=== PATIENT | male | born 1940 | race Caucasian/White ===

== ENCOUNTER 2018-10-01 14:26 | Emergency (ER) | payer MEDICARE, OTHER, SELFPAY ==
[2018-10-01 14:30] VITALS: BP 188/79; PULSE 65; RESP 14; TEMP 36.7; O2SAT 97; BMI 25.1
--- NOTE | 2018-10-01 14:50 | ED_ITS ---
HPI - Abdominal Pain <Josie Griffin PA-C - Last Filed: 10/01/18 20:54> General Chief Complaint: Abdominal Pain Stated Complaint: severe stomach pain lower left side Time Seen by Provider: 10/01/18 14:49 Source: patient Mode of arrival: ambulatory Limitations: no limitations History of Present Illness HPI narrative: This 78-year-old male comes in due to onset of abdominal pain about 2 1/2 hr prior to arrival. He states this is mainly in the left and mid lower quadrants and he feels bloated. He has not had fever, nausea, or vomiting and states he ate lunch after the pain started. He describes the pain as sort of a burning sensation, better with standing up and worse with sitting or bending, feeling like that increases pressure. He states he had a normal bowel movement this morning. He denies any new urinary symptoms. He denies any diet changes or exposures. He denies any new trauma such as lifting. No rashes. He has a history of acid reflux and states pain is not like that, denies chest pain or dyspnea or any other new complaints with this. He states that he had a similar episode about 6 weeks ago that resolved on its own in 5 or 6 hr. PCP advised to ED if recurrent Related Data Home Medications Medication Instructions Recorded Confirmed Ca-D3-mag qk-gnqc-qtk-antolin-bor 1 tab PO QPM 10/01/18 10/01/18 [Calcium 600-D3 Plus] Fish Oil 1,200 mg PO QPM 10/01/18 10/01/18 aspirin 81 mg PO QPM 10/01/18 10/01/18 calcium polycarbophil [Fiber 625 mg PO QPM 10/01/18 10/01/18 (calcium polycarbophil)] folic acid 0.4 mg PO QPM 10/01/18 10/01/18 lansoprazole 30 mg PO DAILY 10/01/18 10/01/18 lovastatin 40 mg PO QPM 10/01/18 10/01/18 tamsulosin 0.8 mg PO QPM 10/01/18 10/01/18 Previous Rx's Medication Instructions Recorded hydrocodone-acetaminophen [[place]] 2 tab PO Q6H #16 tab 10/01/18 sulfamethoxazole-trimethoprim 1 tab PO BID #14 tab 10/01/18 [Bactrim DS] Allergies Allergy/AdvReac Type Severity Reaction Status Date / Time No Known Drug Allergies Allergy Verified 10/01/18 14:33 Review of Systems <Josie Griffin PA-C - Last Filed: 10/01/18 20:54> Review of Systems All systems reviewed & are unremarkable except as noted in HPI and below Exam <Josie Griffin PA-C - Last Filed: 10/01/18 20:54> Narrative Exam Narrative: GENERAL APPEARANCE: Patient resting comfortably, in no distress. HEENT: PERRL, EOMI, no scleral icterus NECK: Supple LUNGS: Clear to auscultation bilaterally. HEART: Rate and rhythm regular, normal S1 and S2, no S3 or S4. ABDOMEN: Soft, nondistended, bowel sounds present x 4 quadrants, no masses palpable, no hepatosplenomegaly. No tenderness to palpation is elicited EXTREMITIES: No edema, no cyanosis, no calf tenderness DERMATOLOGIC: No jaundice or exanthem NEUROLOGIC: Alert and oriented with normal speech and coordination MUSCULOSKELETAL: Full range of motion of the trunk without tenderness, no tenderness elicited with left hip forced flexion, inversion/eversion Initial Vital Signs Initial Vital Signs: Vital Signs Temperature 98.1 F 10/01/18 14:30 Pulse Rate 65 10/01/18 14:30 Respiratory Rate 14 10/01/18 14:30 Blood Pressure 188/79 H 10/01/18 14:30 Pulse Oximetry 97 10/01/18 14:30 <Elaine Marrero DO - Last Filed: 10/02/18 08:10> Initial Vital Signs Initial Vital Signs: Vital Signs Temperature 98.1 F 10/01/18 14:30 Pulse Rate 65 10/01/18 14:30 Respiratory Rate 14 10/01/18 14:30 Blood Pressure 188/79 H 10/01/18 14:30 Pulse Oximetry 97 10/01/18 14:30 Course <MODE Mckeon Last Filed: 10/01/18 20:54> Orders Ordered: Discontinued Medications Sodium Chloride (Normal Saline 0.9%) 1,000 mls @ 1,000 mls/hr IV BOLUS ONE Stop: 10/01/18 16:05 Last Infusion: 10/01/18 16:42 Dose: 0 mls/hr Admin: 10/01/18 15:19 Dose: 1,000 mls/hr Ketorolac Tromethamine (Toradol) 15 mg IV NOW ONE Stop: 10/01/18 15:07 Last Admin: 10/01/18 15:19 Dose: 15 mg Patient reported feeling significantly improved prior to discharge. He is already on tamsulosin. Given a prescription for pain medication and a strainer as well as Bactrim rx. Advised that stone on the left is partly obstructing but likely to pass on its own. He does have a local urologist he saw last year and will call the office to schedule follow-up in case intervention needed. He is agreeable with this plan and will return if any acutely worsening symptoms in the interim Vital Signs - 8 hr 10/01/18 14:30 10/01/18 16:05 10/01/18 16:20 Temperature 98.1 F Pulse Rate 65 74 74 Respiratory Rate 14 16 14 Blood Pressure 188/79 H Blood Pressure [Left Arm] 178/76 H 163/76 H Pulse Oximetry 97 96 96 10/01/18 16:43 Temperature Pulse Rate 77 Respiratory Rate 15 Blood Pressure Blood Pressure [Left Arm] 164/78 H Pulse Oximetry 99 <Elaine Marrero DO - Last Filed: 10/02/18 08:10> Orders Ordered: Discontinued Medications Sodium Chloride (Normal Saline 0.9%) 1,000 mls @ 1,000 mls/hr IV BOLUS ONE Stop: 10/01/18 16:05 Last Infusion: 10/01/18 16:42 Dose: 0 mls/hr Admin: 10/01/18 15:19 Dose: 1,000 mls/hr Ketorolac Tromethamine (Toradol) 15 mg IV NOW ONE Stop: 10/01/18 15:07 Last Admin: 10/01/18 15:19 Dose: 15 mg Vital Signs - 8 hr 10/01/18 14:30 10/01/18 16:05 10/01/18 16:20 Temperature 98.1 F Pulse Rate 65 74 74 Respiratory Rate 14 16 14 Blood Pressure 188/79 H Blood Pressure [Left Arm] 178/76 H 163/76 H Pulse Oximetry 97 96 96 10/01/18 16:43 Temperature Pulse Rate 77 Respiratory Rate 15 Blood Pressure Blood Pressure [Left Arm] 164/78 H Pulse Oximetry 99 MDM - Abdominal Pain <Josie Griffin PA-C - Last Filed: 10/01/18 20:54> Lab Data Result diagrams: 10/01/18 14:55 10/01/18 14:55 Lab Results 10/01/18 10/01/18 10/01/18 Range/Units 14:55 14:55 14:55 WBC 6.5 (4.5-11.0) X10^3/uL RBC 4.70 (4.5-5.9) X10^6/uL Hgb 14.5 (13.5-17.5) g/dL Hct 42.7 (41-53) % MCV 90.9 (80-100) fL MCH 30.9 (26-34) PG MCHC 34.0 (30-36) % RDW 13.5 (11.6-14.8) % Plt Count 197 (150-400) X10^3/uL Neut % (Auto) 85.9 H (50-75) % Lymph % (Auto) 6.9 L (25-40) % [place] % (Auto) 6.6 (3-14) % Eos % (Auto) 0.2 L (2-4) % Baso % (Auto) 0.4 (0-2) % Neut # (Auto) 5600 (9105-6461) /uL PT 11.4 (10.1-12.7) SECONDS INR 1.0 (0.9-1.3) APTT 32 (26.4-36.2) SECONDS Sodium 145 (137-145) mmol/L Potassium 4.6 (3.4-5.1) mmol/L Chloride 107 (98-107) mmol/L Carbon Dioxide 26 (22-32) mmol/L BUN 21 H (9-20) mg/dL Creatinine 1.40 H (0.66-1.25) mg/dL Estimated GFR 49.3 L (>60) mL/min BUN/Creatinine Ratio 15.0 (6-22) Glucose 121 H (80-110) mg/dL Calcium 9.3 (8.4-10.2) mg/dL Total Bilirubin 0.6 (0.2-1.3) mg/dL AST 27 (17-59) IU/L ALT 32 (21-72) IU/L Alkaline Phosphatase 91 (38-126) U/L Total Protein 6.9 (6.3-8.2) g/dL Albumin 4.2 (3.5-5.0) g/dL Globulin 2.7 (1.7-4.1) g/dL Albumin/Globulin Ratio 1.6 (1.0-2.8) Lipase 54 (23-300) U/L Urine RBC (0-5/HPF) Urine WBC (0-5/HPF) Urine Bacteria (None) Ur Culture Indicated? Micro UA Comment 10/01/18 Range/Units Unknown WBC (4.5-11.0) X10^3/uL RBC (4.5-5.9) X10^6/uL Hgb (13.5-17.5) g/dL Hct (41-53) % MCV (80-100) fL MCH (26-34) PG MCHC (30-36) % RDW (11.6-14.8) % Plt Count (150-400) X10^3/uL Neut % (Auto) (50-75) % Lymph % (Auto) (25-40) % [place] % (Auto) (3-14) % Eos % (Auto) (2-4) % Baso % (Auto) (0-2) % Neut # (Auto) (5670-4270) /uL PT (10.1-12.7) SECONDS INR (0.9-1.3) APTT (26.4-36.2) SECONDS Sodium (137-145) mmol/L Potassium (3.4-5.1) mmol/L Chloride (98-107) mmol/L Carbon Dioxide (22-32) mmol/L BUN (9-20) mg/dL Creatinine (0.66-1.25) mg/dL Estimated GFR (>60) mL/min BUN/Creatinine Ratio (6-22) Glucose (80-110) mg/dL Calcium (8.4-10.2) mg/dL Total Bilirubin (0.2-1.3) mg/dL AST (17-59) IU/L ALT (21-72) IU/L Alkaline Phosphatase (38-126) U/L Total Protein (6.3-8.2) g/dL Albumin (3.5-5.0) g/dL Globulin (1.7-4.1) g/dL Albumin/Globulin Ratio (1.0-2.8) Lipase (23-300) U/L Urine RBC 5-10/hpf H (0-5/HPF) Urine WBC 5-10/hpf H (0-5/HPF) Urine Bacteria None seen (None) Ur Culture Indicated? Specimen cultured Micro UA Comment Not Reportable Point of care testing: Urine Dip Bedside Urine Glucose Negative Bedside Urine Bilirubin - Negative Bedside Urine Ketone - Negative Urine Specific [place] 1.030 Bedside Urine Occult Blood +++ Bedside Urine pH 6.0 Bedside Urine Protein + 30 Bedside Urine Urobilinogen - Negative Bedside Urine Nitrite - Negative Bedside Urine Leukocytes +/- 15 Esterase <Elaine Marrero, DO - Last Filed: 10/02/18 08:10> Lab Data Lab Results 10/01/18 10/01/18 10/01/18 Range/Units 14:55 14:55 14:55 WBC 6.5 (4.5-11.0) X10^3/uL RBC 4.70 (4.5-5.9) X10^6/uL Hgb 14.5 (13.5-17.5) g/dL Hct 42.7 (41-53) % MCV 90.9 (80-100) fL MCH 30.9 (26-34) PG MCHC 34.0 (30-36) % RDW 13.5 (11.6-14.8) % Plt Count 197 (150-400) X10^3/uL Neut % (Auto) 85.9 H (50-75) % Lymph % (Auto) 6.9 L (25-40) % [place] % (Auto) 6.6 (3-14) % Eos % (Auto) 0.2 L (2-4) % Baso % (Auto) 0.4 (0-2) % Neut # (Auto) 5600 (5804-5616) /uL PT 11.4 (10.1-12.7) SECONDS INR 1.0 (0.9-1.3) APTT 32 (26.4-36.2) SECONDS Sodium 145 (137-145) mmol/L Potassium 4.6 (3.4-5.1) mmol/L Chloride 107 (98-107) mmol/L Carbon Dioxide 26 (22-32) mmol/L BUN 21 H (9-20) mg/dL Creatinine 1.40 H (0.66-1.25) mg/dL Estimated GFR 49.3 L (>60) mL/min BUN/Creatinine Ratio 15.0 (6-22) Glucose 121 H (80-110) mg/dL Calcium 9.3 (8.4-10.2) mg/dL Total Bilirubin 0.6 (0.2-1.3) mg/dL AST 27 (17-59) IU/L ALT 32 (21-72) IU/L Alkaline Phosphatase 91 (38-126) U/L Total Protein 6.9 (6.3-8.2) g/dL Albumin 4.2 (3.5-5.0) g/dL Globulin 2.7 (1.7-4.1) g/dL Albumin/Globulin Ratio 1.6 (1.0-2.8) Lipase 54 (23-300) U/L Urine RBC (0-5/HPF) Urine WBC (0-5/HPF) Urine Bacteria (None) Ur Culture Indicated? Micro UA Comment 10/01/18 Range/Units Unknown WBC (4.5-11.0) X10^3/uL RBC (4.5-5.9) X10^6/uL Hgb (13.5-17.5) g/dL Hct (41-53) % MCV (80-100) fL MCH (26-34) PG MCHC (30-36) % RDW (11.6-14.8) % Plt Count (150-400) X10^3/uL Neut % (Auto) (50-75) % Lymph % (Auto) (25-40) % [place] % (Auto) (3-14) % Eos % (Auto) (2-4) % Baso % (Auto) (0-2) % Neut # (Auto) (3880-2056) /uL PT (10.1-12.7) SECONDS INR (0.9-1.3) APTT (26.4-36.2) SECONDS Sodium (137-145) mmol/L Potassium (3.4-5.1) mmol/L Chloride (98-107) mmol/L Carbon Dioxide (22-32) mmol/L BUN (9-20) mg/dL Creatinine (0.66-1.25) mg/dL Estimated GFR (>60) mL/min BUN/Creatinine Ratio (6-22) Glucose (80-110) mg/dL Calcium (8.4-10.2) mg/dL Total Bilirubin (0.2-1.3) mg/dL AST (17-59) IU/L ALT (21-72) IU/L Alkaline Phosphatase (38-126) U/L Total Protein (6.3-8.2) g/dL Albumin (3.5-5.0) g/dL Globulin (1.7-4.1) g/dL Albumin/Globulin Ratio (1.0-2.8) Lipase (23-300) U/L Urine RBC 5-10/hpf H (0-5/HPF) Urine WBC 5-10/hpf H (0-5/HPF) Urine Bacteria None seen (None) Ur Culture Indicated? Specimen cultured Micro UA Comment Not Reportable Point of care testing: Urine Dip Bedside Urine Glucose Negative Bedside Urine Bilirubin - Negative Bedside Urine Ketone - Negative Urine Specific [place] 1.030 Bedside Urine Occult Blood +++ Bedside Urine pH 6.0 Bedside Urine Protein + 30 Bedside Urine Urobilinogen - Negative Bedside Urine Nitrite - Negative Bedside Urine Leukocytes +/- 15 Esterase Discharge Plan Departure Patient Disposition: Home Clinical Impression: Bilateral nephrolithiasis Discharge Date/Time: 10/01/18 17:03 Interventions: ED Discharge Assessment Last Done: 10/01/18 16:55 Instructions: DI for Kidney Stones Activity Restrictions/Additional Instructions: Your scan today shows that you have stones in both kidneys of similar size, however the 1 on the left is causing a partial blockage due to its location. This is likely to pass on its own, but if not sometimes the urologist will need to do a procedure to remove it or break up the stone. Please call [facility] today and let them know you are a patient and were seen in the emergency room and need to arrange follow-up this week. Please take the prescription pain medicine as you needed (do not drive as it may make you sleepy ), and also start the antibiotic when you pick it up. Continue your tamsulosin. Please return as we talked about if you have any acutely worsening or new symptoms such as vomiting or fever in the interim. Also please arrange follow-up with your PCP to review your scan results today including whether to do any further testing of the thickened area near your stomach that was noted coincidentally Prescriptions: New hydrocodone-acetaminophen [[place]] 5-325 mg tablet 2 tab PO Q6H Qty: 16 RF: 0 sulfamethoxazole-trimethoprim [Bactrim DS] 800-160 mg tablet 1 tab PO BID Qty: 14 RF: 0 No Action lovastatin 40 mg Tablet 40 mg PO QPM RF: 0 folic acid 400 mcg Tablet 0.4 mg PO QPM RF: 0 aspirin 81 mg Tablet,Delayed Release (Dr/Ec) 81 mg PO QPM RF: 0 tamsulosin 0.4 mg Capsule 0.8 mg PO QPM RF: 0 lansoprazole 30 mg Capsule,Delayed Release(Dr/Ec) 30 mg PO DAILY RF: 0 calcium polycarbophil [Fiber (calcium polycarbophil)] 625 mg Tablet 625 mg PO QPM RF: 0 Ca-D3-mag vf-waqr-gss-antolin-bor [Calcium 600-D3 Plus] 600 mg calcium- 800 unit- 50 mg Tablet 1 tab PO QPM RF: 0 Fish Oil 1,200 mg 1,200 mg PO QPM RF: 0 Referrals: Noris Brady MD [Non-Staff] - Booker Hancock MD [Primary Care Provider] - <Elaine Marrero DO - Last Filed: 10/02/18 08:10> Cosign ED Attending Cosignature Attestation: I was immediately available in the department for consultation. Documentation has been reviewed. I agree with assessment and plan.
[2018-10-01 15:05] LABS: Add Manual Diff / Slide Review NO; Basophils Percent Auto 0.4 % (0-2); Eosinophils Percent Auto 0.2 % (2-4); Hematocrit 42.7 % (41-53); Hemoglobin 14.5 g/dL (13.5-17.5); Lymphocytes Percent Auto 6.9 % (25-40); Mean Corpuscular Hemoglobin 30.9 PG (26-34); Mean Corpuscular Volume 90.9 fL (80-100); Monocytes Percent Auto 6.6 % (3-14); Neutrophils Absolute Auto 5600 /uL (1500-7000); Neutrophils Percent Auto 85.9 % (50-75); Platelet Count 197 X10^3/uL (150-400); Red Cell Distribution Width 13.5 % (11.6-14.8); White Blood Cell Count 6.5 X10^3/uL (4.5-11.0)
--- NOTE | 2018-10-01 15:06 | DI.CT.S_ITS ---
PROCEDURE: CT ABDOMEN PELVIS W CON INDICATIONS: mid to left lower quadrant pain TECHNIQUE: After the administration of intravenous contrast, 5 mm thick sections acquired from the diaphragm to the symphysis. 5 mm coronal and sagittal reformats were acquired. For radiation dose reduction, the following was used: automated exposure control, adjustment of mA and/or kV according to patient size. COMPARISON: None. FINDINGS: Image quality: Excellent. ABDOMEN: Lung bases: Lung bases are clear. Heart size is normal. Solid organs: Liver is normal in size and enhancement. Gallbladder demonstrates multiple calculi within its lumen. Biliary system is non dilated. Pancreas enhances normally. Spleen is normal in size and enhancement. No adrenal nodules. The right kidney is normal in size. There is a nonobstructing 6 mm diameter calculus within the right interpolar kidney posteriorly. There is mild left renal enlargement and severe (for fastening. Moderate left hydronephrosis and left ureteral dilatation. There is a 6 mm diameter calculus at the left ureterovesical junction measuring 509 Hounsfield units. Peritoneum and bowel: There is thickening and hyperemia of the gastric antrum. No free fluid or air. Normal appendix. Nodes and vessels: No retroperitoneal or mesenteric adenopathy by size criteria. There is mild focal ectasia within the infrarenal abdominal aorta measuring 21 mm. Aorta and inferior vena cava are otherwise normal in size. Miscellaneous: No ventral hernias. PELVIS: Genitourinary: Urinary bladder is decompressed. Prostate is enlarged and heterogeneous, and indents the urinary bladder base. Miscellaneous: No inguinal hernias or adenopathy. Bones: No suspicious bony lesions. No vertebral body compression fractures. IMPRESSION: 1. Left ureterovesical junction calculus with moderate associated left-sided hydronephrosis. 2. Nonobstructing right renal calculus. 3. Thickening of hyperemia of the gastric antrum, which may indicate peptic ulcer disease. However, endoscopy is recommended to exclude neoplasm. 4. Cholelithiasis. 6. Normal appendix. 7. Prostate enlargement; recommend correlation with PSA values. Dictated by: Faith Warren M.D. on 10/01/2018 at 16:09 Approved by: Faith Warren M.D. on 10/01/2018 at 16:13
[2018-10-01 15:15] LABS: Prothrombin Time 11.4 SECONDS (10.1-12.7)
[2018-10-01 15:17] LABS: PTT Partial Thromboplastin Tim 32 SECONDS (26.4-36.2)
[2018-10-01] MEDS: SODIUM CHLORIDE 0.9% 1,000 ML 1000 ML IV (15:19)
[2018-10-01] MEDS: KETOROLAC 60 MG/2 ML VIAL 15 MG IV (15:19)
[2018-10-01 15:20] LABS: Alanine Aminotransferase 32 IU/L (21-72); Albumin 4.2 g/dL (3.5-5.0); Albumin Globulin Ratio 1.6 (1.0-2.8); Alkaline Phosphatase 91 U/L (38-126); Aspartate Aminotransferase 27 IU/L (17-59); Bilirubin Total 0.6 mg/dL (0.2-1.3); Blood Urea Nitrogen 21 mg/dL (9-20); Calcium 9.3 mg/dL (8.4-10.2); Carbon Dioxide 26 mmol/L (22-32); Chloride 107 mmol/L (98-107); Estimated Glomerular Filt Rate 49.3 mL/min (>60); Globulin 2.7 g/dL (1.7-4.1); Glucose 121 mg/dL (80-110); HEMOLYSIS 17 (0-50); Lipase 54 U/L (23-300); Potassium 4.6 mmol/L (3.4-5.1); Sodium 145 mmol/L (137-145); Total Protein 6.9 g/dL (6.3-8.2)
[2018-10-01 15:37] LABS: Bacteria Urine None Seen
[2018-10-01 15:52] LABS: RBC Urine 5-10/HPF (0-5/HPF); WBC Urine 5-10/HPF (0-5/HPF)
[2018-10-01 15:53] LABS: Culture Indicated Urine Specimen Cultured
[2018-10-01 16:05] VITALS: BP 178/76; PULSE 74; RESP 16; O2SAT 96
[2018-10-01 16:20] VITALS: BP 163/76; PULSE 74; RESP 14; O2SAT 96
[2018-10-01 16:43] VITALS: BP 164/78; PULSE 77; RESP 15; O2SAT 99
== END 2018-10-01 17:03 | disposition home or self-care (01) ==
PROVIDERS: Emergency Medicine; Emergency Provider Internal Medicine; Family Provider Family Medicine; PCP Family Medicine
DX: N20.0 Calculus of kidney (principal)
CPT/HCPCS: 36591; 74177; 80053; 81003; 81015; 83690; 85025; 85610; 85730; 87086; 96361; 96374; 99283; 99285; J1885; Q9967

== ENCOUNTER → 2018-10-11 10:21 | Outpatient (CLI) | payer MEDICARE, OTHER, SELFPAY ==
[2018-10-11 12:22] LABS: BUN Creatinine Ratio 13.1 (6-22); Blood Urea Nitrogen 21 mg/dL (9-20); Estimated Glomerular Filt Rate 42.2 mL/min (>60)
== END ==
PROVIDERS: Family Provider Family Medicine; PCP Family Medicine; Visit Provider Urology
DX: N28.9 Disorder of kidney and ureter, unspecified (principal)
CPT/HCPCS: 36415; 82565; 84520

== ENCOUNTER 2018-10-25 20:14 | Emergency (ER) | payer MEDICARE, OTHER, SELFPAY ==
[2018-10-25 20:33] VITALS: BP 124/73; PULSE 99; RESP 18; TEMP 36.9; O2SAT 95
--- NOTE | 2018-10-25 21:58 | ED.MALEGU ---
HPI - Male Genitourinary General Chief complaint: Urogenital-Male Stated complaint: CLOTS IN URINARY CATHETER BAG S/P PROCEDURE Time Seen by Provider: 10/25/18 20:49 Source: patient and family Mode of arrival: ambulatory Limitations: no limitations History of Present Illness HPI Narrative: 78-year-old male, nonsmoker presents with his and a chief complaint of blood in his Lange catheter. Earlier in the day the patient was seen and treated by Urology at [facility]. He had a ureteral stent placed because he was unable to urinate. This Lange was placed in the care of his urology team. Patient has no pain nor systemic findings such as fever, shaking chills, back pain or vomiting. He is here purely because of a few blood clots in his pinkish colored urine. He takes no blood thinners. MD Complaint: testicle pain Onset (ago): minute(s) Duration: constant and improved Related Data Home Medications Medication Instructions Recorded Confirmed Ca-D3-mag bv-nzsc-zlx-antolin-bor 1 tab PO QPM 10/01/18 10/24/18 [Calcium 600-D3 Plus] Fish Oil 1,200 mg PO QPM 10/01/18 10/24/18 aspirin 81 mg PO QPM 10/01/18 10/24/18 calcium polycarbophil [Fiber 625 mg PO QPM 10/01/18 10/24/18 (calcium polycarbophil)] folic acid 0.4 mg PO QPM 10/01/18 10/24/18 lansoprazole 30 mg PO DAILY 10/01/18 10/24/18 lovastatin 40 mg PO QPM 10/01/18 10/24/18 tamsulosin 0.8 mg PO QPM 10/01/18 10/24/18 Previous Rx's Medication Instructions Recorded hydrocodone-acetaminophen [[place]] 2 tab PO Q6H #16 tab 10/01/18 sulfamethoxazole-trimethoprim 1 tab PO BID #14 tab 10/01/18 [Bactrim DS] Allergies Allergy/AdvReac Type Severity Reaction Status Date / Time No Known Drug Allergies Allergy Verified 10/24/18 13:17 Review of Systems Constitutional Denies chills, Denies fever(s), Denies lethargy and Denies weakness Eyes Denies change in vision, Denies eye discharge, Denies irritation and Denies loss of vision ENT Ears, Nose, Mouth, and Throat: Denies change in voice, Denies neck pain and Denies sore throat Cardiovascular Denies chest pain, Denies irregular heart rhythm, Denies lightheadedness, Denies palpitations, Denies dyspnea, Denies dyspnea on exertion and Denies orthopnea Respiratory Denies cough, Denies dyspnea, Denies dyspnea on exertion and Denies wheezing Gastrointestinal Gastrointestinal: Denies abdominal pain, Denies change in bowel habits, Denies diarrhea, Denies nausea and Denies vomiting Genitourinary Denies hematuria, Reports difficulty urinating, Denies flank pain, Denies urinary incontinence and Denies urinary urgency Musculoskeletal Denies neck pain Integumentary/Breasts Denies pruritus, Denies erythema, Denies rash and Denies wounds Neurologic Denies confusion, Denies loss of vision and Denies weakness Psychiatric Denies anxiety, Denies confusion, Denies depression, Denies homicidal ideation and Denies suicidal ideation Endocrine Denies palpitations Hematologic/Lymphatic Denies easy bruising Allergic/Immunologic Denies wheezing PFSH Medical History Kidney stones (Acute) BPH (benign prostatic hyperplasia) (Chronic) GERD (gastroesophageal reflux disease) (Chronic) HTN (hypertension) (Chronic) Hyperlipidemia (Chronic) Surgical History History of tonsillectomy (Resolved) Social History Smoking Status: Never smoker Exam Narrative Exam Narrative: GEN: AOx3 and in mild distress EYES: Pupils are equal, round, and reactive to light and accommodation. Extraoccular muscles are intact bilaterally. There is no subconjunctival hemorrhage or exudate. CHEST: Lungs are clear to auscultation bilaterally and free of wheezes, rales, or rhonchi. Heart rate is regular rhythm, there are no murmurs, clicks, rubs, or gallops. There is no chest wall tenderness. ABD: Abdomen is soft and nontender. There is no guarding or rebound. Bowel sounds are normal in all 4 quadrants. There is no mass or organomegaly. There is clear, blood-tinged urine in Lange bag with small clots, this is easily flushed to normal EXT: Full painless ROM of all extremities with no loss of sensation or strength. SKIN: Warm, pink, and dry. No erythema or rash Initial Vital Signs Initial Vital Signs: Vital Signs Temperature 98.5 F 10/25/18 20:33 Pulse Rate 99 H 10/25/18 20:33 Respiratory Rate 18 10/25/18 20:33 Blood Pressure 124/73 10/25/18 20:33 Pulse Oximetry 95 10/25/18 20:33 Course Consultations Consultation #1: Called to Dr. Brady, on-call Urology. After discussing the patient's history and physical she states this is likely a normal consequence of the above-stated therapy. She does not request any other specific intervention given lack of symptoms and normal vital signs Vital Signs - 8 hr 10/25/18 20:33 10/25/18 22:42 Temperature 98.5 F Pulse Rate 99 H 70 Respiratory Rate 18 20 Blood Pressure 124/73 147/67 H Pulse Oximetry 95 97 Discharge Plan Departure Patient Disposition: Home Clinical Impression: Complication of Lange catheter Discharge Date/Time: 10/25/18 22:44 Interventions: ED Discharge Assessment Last Done: 10/25/18 22:42 Instructions: How to Care for Your Lange Catheter -- Male Activity Restrictions/Additional Instructions: *You have been diagnosed with [Lange catheter problem, hematuria ] *What to do: * continue to take medications as directed *Follow up with your urologist on Monday as planned *Return to ER if you should have any new, worsening or concerning symptoms Prescriptions: No Action lovastatin 40 mg Tablet 40 mg PO QPM RF: 0 folic acid 400 mcg Tablet 0.4 mg PO QPM RF: 0 aspirin 81 mg Tablet,Delayed Release (Dr/Ec) 81 mg PO QPM RF: 0 tamsulosin 0.4 mg Capsule 0.8 mg PO QPM RF: 0 lansoprazole 30 mg Capsule,Delayed Release(Dr/Ec) 30 mg PO DAILY RF: 0 calcium polycarbophil [Fiber (calcium polycarbophil)] 625 mg Tablet 625 mg PO QPM RF: 0 Ca-D3-mag ap-dawi-cfc-antolin-bor [Calcium 600-D3 Plus] 600 mg calcium- 800 unit-50 mg Tablet 1 tab PO QPM RF: 0 Fish Oil 1,200 mg 1,200 mg PO QPM RF: 0 hydrocodone-acetaminophen [[place]] 5-325 mg tablet 2 tab PO Q6H Qty: 16 RF: 0 sulfamethoxazole-trimethoprim [Bactrim DS] 800-160 mg tablet 1 tab PO BID Qty: 14 RF: 0 Referrals: John Cr MD [Non-Staff] - Booker Hancock MD [Primary Care Provider] -
--- NOTE | 2018-10-25 22:11 | ED_ITS ---
HPI - Male Genitourinary General Chief complaint: Urogenital-Male Stated complaint: CLOTS IN URINARY CATHETER BAG S/P PROCEDURE Time Seen by Provider: 10/25/18 20:49 Source: patient and family Mode of arrival: ambulatory Limitations: no limitations History of Present Illness HPI Narrative: 78-year-old male, nonsmoker presents with his and a chief complaint of blood in his Lange catheter. Earlier in the day the patient was seen and treated by Urology at [facility]. He had a ureteral stent placed because he was unable to urinate. This Lange was placed in the care of his urology team. Patient has no pain nor systemic findings such as fever, shaking chills, back pain or vomiting. He is here purely because of a few blood clots in his pinkish colored urine. He takes no blood thinners. MD Complaint: testicle pain Onset (ago): minute(s) Duration: constant and improved Related Data Home Medications Medication Instructions Recorded Confirmed Ca-D3-mag qs-yhse-hsq-antolin-bor 1 tab PO QPM 10/01/18 10/24/18 [Calcium 600-D3 Plus] Fish Oil 1,200 mg PO QPM 10/01/18 10/24/18 aspirin 81 mg PO QPM 10/01/18 10/24/18 calcium polycarbophil [Fiber 625 mg PO QPM 10/01/18 10/24/18 (calcium polycarbophil)] folic acid 0.4 mg PO QPM 10/01/18 10/24/18 lansoprazole 30 mg PO DAILY 10/01/18 10/24/18 lovastatin 40 mg PO QPM 10/01/18 10/24/18 tamsulosin 0.8 mg PO QPM 10/01/18 10/24/18 Previous Rx's Medication Instructions Recorded hydrocodone-acetaminophen [[place]] 2 tab PO Q6H #16 tab 10/01/18 sulfamethoxazole-trimethoprim 1 tab PO BID #14 tab 10/01/18 [Bactrim DS] Allergies Allergy/AdvReac Type Severity Reaction Status Date / Time No Known Drug Allergies Allergy Verified 10/24/18 13:17 Review of Systems Constitutional Denies chills, Denies fever(s), Denies lethargy and Denies weakness Eyes Denies change in vision, Denies eye discharge, Denies irritation and Denies loss of vision ENT Ears, Nose, Mouth, and Throat: Denies change in voice, Denies neck pain and Denies sore throat Cardiovascular Denies chest pain, Denies irregular heart rhythm, Denies lightheadedness, Denies palpitations, Denies dyspnea, Denies dyspnea on exertion and Denies orthopnea Respiratory Denies cough, Denies dyspnea, Denies dyspnea on exertion and Denies wheezing Gastrointestinal Gastrointestinal: Denies abdominal pain, Denies change in bowel habits, Denies diarrhea, Denies nausea and Denies vomiting Genitourinary Denies hematuria, Reports difficulty urinating, Denies flank pain, Denies urinary incontinence and Denies urinary urgency Musculoskeletal Denies neck pain Integumentary/Breasts Denies pruritus, Denies erythema, Denies rash and Denies wounds Neurologic Denies confusion, Denies loss of vision and Denies weakness Psychiatric Denies anxiety, Denies confusion, Denies depression, Denies homicidal ideation and Denies suicidal ideation Endocrine Denies palpitations Hematologic/Lymphatic Denies easy bruising Allergic/Immunologic Denies wheezing PFSH Medical History Kidney stones (Acute) BPH (benign prostatic hyperplasia) (Chronic) GERD (gastroesophageal reflux disease) (Chronic) HTN (hypertension) (Chronic) Hyperlipidemia (Chronic) Surgical History History of tonsillectomy (Resolved) Social History Smoking Status: Never smoker Exam Narrative Exam Narrative: GEN: AOx3 and in mild distress EYES: Pupils are equal, round, and reactive to light and accommodation. Extraoccular muscles are intact bilaterally. There is no subconjunctival hemorrhage or exudate. CHEST: Lungs are clear to auscultation bilaterally and free of wheezes, rales, or rhonchi. Heart rate is regular rhythm, there are no murmurs, clicks, rubs, or gallops. There is no chest wall tenderness. ABD: Abdomen is soft and nontender. There is no guarding or rebound. Bowel sounds are normal in all 4 quadrants. There is no mass or organomegaly. There is clear, blood-tinged urine in Lange bag with small clots, this is easily flushed to normal EXT: Full painless ROM of all extremities with no loss of sensation or strength. SKIN: Warm, pink, and dry. No erythema or rash Initial Vital Signs Initial Vital Signs: Vital Signs Temperature 98.5 F 10/25/18 20:33 Pulse Rate 99 H 10/25/18 20:33 Respiratory Rate 18 10/25/18 20:33 Blood Pressure 124/73 10/25/18 20:33 Pulse Oximetry 95 10/25/18 20:33 Course Consultations Consultation #1: Called to Dr. Brady, on-call Urology. After discussing the patient's history and physical she states this is likely a normal consequence of the above-stated therapy. She does not request any other specific intervention given lack of symptoms and normal vital signs Vital Signs - 8 hr 10/25/18 20:33 10/25/18 22:42 Temperature 98.5 F Pulse Rate 99 H 70 Respiratory Rate 18 20 Blood Pressure 124/73 147/67 H Pulse Oximetry 95 97 Discharge Plan Departure Patient Disposition: Home Clinical Impression: Complication of Lange catheter Discharge Date/Time: 10/25/18 22:44 Interventions: ED Discharge Assessment Last Done: 10/25/18 22:42 Instructions: How to Care for Your Lange Catheter -- Male Activity Restrictions/Additional Instructions: *You have been diagnosed with [Lange catheter problem, hematuria ] *What to do: * continue to take medications as directed *Follow up with your urologist on Monday as planned *Return to ER if you should have any new, worsening or concerning symptoms Prescriptions: No Action lovastatin 40 mg Tablet 40 mg PO QPM RF: 0 folic acid 400 mcg Tablet 0.4 mg PO QPM RF: 0 aspirin 81 mg Tablet,Delayed Release (Dr/Ec) 81 mg PO QPM RF: 0 tamsulosin 0.4 mg Capsule 0.8 mg PO QPM RF: 0 lansoprazole 30 mg Capsule,Delayed Release(Dr/Ec) 30 mg PO DAILY RF: 0 calcium polycarbophil [Fiber (calcium polycarbophil)] 625 mg Tablet 625 mg PO QPM RF: 0 Ca-D3-mag or-ykwh-add-antolin-bor [Calcium 600-D3 Plus] 600 mg calcium- 800 unit- 50 mg Tablet 1 tab PO QPM RF: 0 Fish Oil 1,200 mg 1,200 mg PO QPM RF: 0 hydrocodone-acetaminophen [[place]] 5-325 mg tablet 2 tab PO Q6H Qty: 16 RF: 0 sulfamethoxazole-trimethoprim [Bactrim DS] 800-160 mg tablet 1 tab PO BID Qty: 14 RF: 0 Referrals: John rC MD [Non-Staff] - Booker Hancock MD [Primary Care Provider] -
--- NOTE | 2018-10-25 22:33 | PC.NURSE ---
irrigated pts bladder to clear per provider. 500ml sterile saline in, 500ml sterile saline drained. minor blood clots noted provider aware no new order at this time. pt tolerated procedure.
[2018-10-25 22:42] VITALS: BP 147/67; PULSE 70; RESP 20; O2SAT 97
== END 2018-10-25 22:44 | disposition home or self-care (01) ==
PROVIDERS: Emergency Provider Emergency Medicine; Family Provider Family Medicine; PCP Family Medicine
DX: T83.9XXA Unspecified complication of genitourinary prosthetic device, implant and graft, initial encounter (principal)
CPT/HCPCS: 51700; 51798; 99283

== ENCOUNTER 2018-12-04 06:39 | Day surgery (SDC) | payer MEDICARE, OTHER, SELFPAY ==
--- NOTE | 2018-12-04 | PATH_ITS ---
[facility] Accession Number: [id number] . 01 Material submitted: . PART A: SUBMUCOSAL MASS OF THE ANTRUM PART B: GASTRIC POLYPS . 02 Diagnosis: A. Stomach, Antrum, Submucosal Mass, Biopsy: Antral and oxyntic-type mucosa with no diagnostic abnormality. Additional deeper levels were examined. Negative for Helicobacter by immunohistochemistry. Negative for intestinal metaplasia. Negative for dysplasia and malignancy. . B. Stomach, Polyps, Biopsies: Fundic gland polyps. No evidence of Helicobacter on H/E stain. Negative for intestinal metaplasia. Negative for dysplasia and malignancy. [facility]/12/06/2018 . 02 Comment: Part A: The endoscopic appearance of submucosal mass is noted; however, in the biopsy fragments examined, submucosa is not seen. . 02 Electronically signed: . Lu Lang MD, Pathologist NPI- [id number] . 01 Gross description: . Received two formalin-filled containers both labeled with the patient's name. . A. In a container labeled submucosal mass of the antrum are four less than 0.1 to 0.2 cm portions of tissue. Entirely submitted in cassette A. B. In a container labeled gastric polyps are three 0.2 to 0.3 cm portions of tissue. Entirely submitted in cassette B. ([facility]:[id number]) /[facility] . 02 Microscopic: . A. An immunohistochemical stain was performed to evaluate for Helicobacter organisms and is negative. The control stain showed appropriate reactivity. . * This test was developed and its performance characteristics determined by [employer] It has not been cleared or approved by the U.S. Food and Drug Administration. The FDA has determined that such clearance or approval is not necessary. This test is used for clinical purposes. It should not be regarded as investigational or for research. . 02 Pathologist provided ICD-10: R93.89 . 02 CPT . 676632, 511963, Z21718 Performed at: 01 [facility] [address] [id number] MD Manan Márquez MD Phone: [phone] Performed at: [id number] [place], [place] [id number] MD Lu Lang MD Phone: [phone]
[2018-12-04 07:14] VITALS: BP 149/89; PULSE 88; RESP 16; TEMP 36.6; O2SAT 97
[2018-12-04] MEDS: SODIUM CHLORIDE 0.9% 1,000 ML 200 ML IV (07:20)
[2018-12-04 08:03] VITALS: BMI 27.4
--- NOTE | 2018-12-04 08:11 | PM.HP.1 ---
History of Present Illness Date Patient Seen: 12/04/18 Time Patient Seen: 08:00 Chief complaint: [id number] EGD Narrative: Patient is a gentleman here for an EGD. He had an abnormal CT scan of his stomach and is being brought in for evaluation. The gastric antrum shows increased activity and thickening with a suggestion of an ulcer versus a neoplastic process being possible. Patient History Medical History Kidney stones (Acute) BPH (benign prostatic hyperplasia) (Chronic) GERD (gastroesophageal reflux disease) (Chronic) HTN (hypertension) (Chronic) Hyperlipidemia (Chronic) Surgical History History of tonsillectomy (Resolved) Social History household members: spouse Smoking Status: Never smoker Family & Social History Social History: household members spouse Tobacco & Substance use: Smoking Status Never smoker alcohol intake frequency 0-2 drinks per day Substance Use Type does not use Meds Home Medications Medication Instructions Recorded Confirmed Type Ca-D3-mag ec-cybb-dpu-antoiln-bor 1 tab PO QPM 10/01/18 12/04/18 History [Calcium 600-D3 Plus] Fish Oil 1,200 mg PO QPM 10/01/18 10/24/18 History aspirin 81 mg PO QPM 10/01/18 12/04/18 History calcium polycarbophil [Fiber 625 mg PO QPM 10/01/18 12/04/18 History (calcium polycarbophil)] folic acid 0.4 mg PO QPM 10/01/18 10/24/18 History lansoprazole 30 mg PO DAILY 10/01/18 12/04/18 History lovastatin 40 mg PO QPM 10/01/18 12/04/18 History sulfamethoxazole-trimethoprim 1 tab PO BID #14 tab 10/01/18 Rx [Bactrim DS] tamsulosin 0.8 mg PO QPM 10/01/18 10/24/18 History Allergies Allergy/AdvReac Type Severity Reaction Status Date / Time No Known Drug Allergies Allergy Verified 10/24/18 13:17 Review of Systems Review of Systems All systems reviewed & are unremarkable except as noted in HPI and below Genitourinary Comments: Recent kidney stone Exam Vital Signs (past 8 hours): - 12/04/18 07:14 Temperature 97.8 F Pulse Rate 88 Respiratory Rate 16 Blood Pressure 149/89 H Pulse Oximetry 97 Oxygen Delivery Method Room Air Narrative Exam Narrative: Operative no apparent distress. Lungs are clear no rales or rhonchi. heart regular rate and rhythm without murmur gallop. abdomen scaphoid soft nontender without mass. Assessment & Plan Assessment & Plan narrative: Patient with an abnormal CT scan of the stomach. Recommend EGD. Patient is chronically on medication for gastroesophageal reflux disease. Will proceed I have discussed the procedure including risks of bleeding and perforation. He appears to understand wishes to proceed.
[2018-12-04] MEDS: LIDOCAINE 4% SOLN 50 ML 20 ML TOP (08:13)
[2018-12-04] MEDS: TETRACAINE/BENZOCAINE/BUTAMBEN (CETACAINE) BOTTLE 1 SPRAY TOP (08:13)
--- NOTE | 2018-12-04 08:15 | PM.PREOP ---
Pre-operative Note Interval Note History & Physical reviewed/Exam performed by Physician: Yes Changes to H&P: No ASA Class (for procedural sedation): I
[2018-12-04] MEDS: MIDAZOLAM 5 MG/5 ML VIAL IV (08:42)
[2018-12-04] MEDS: fentaNYL 250 MCG/5 ML INJ IV (08:43)
--- NOTE | 2018-12-04 08:44 | PM.OP.ENDO ---
Operative Date/Time/Diagnoses Date of procedure: 12/04/18 Time of procedure: 08:44 Pre-op diagnosis: Abnormal CT scan of the antrum Post-op diagnosis: same Procedure & Clinicians Study performed: EGD with cold biopsy Same procedure as scheduled: Yes Indications: Abnormal CT scan Surgeon: Luis Croft Procedure Notes SCOAP/Timeout: Performed Procedure in detail: The patient had topical anesthetic applied to oropharynx. he was placed in left lateral decubitus position and underwent IV sedation directed by the surgeon consisting of fentanyl and Versed. A bite block was inserted and the scope was advanced through it into the esophagus. The esophagus was unremarkable. GE junction was noted at 39 cm from the incisors. The stomach insufflated well. There were small polyps that appeared to be gastric fundic polyps in the body. These were few in number. The patient appeared to have a submucosal mass on the greater curve of the stomach. It was small, at least that portion protruding up (about 1.5 cm). The pyloric channel was widely patent. The duodenum was remarkable for a narrowing between the 1st and 2nd parts of the duodenum. I could see no lesions however. No scarring was seen. The 3rd part of the duodenum was unremarkable. The bulb was unremarkable. The scope was brought back into the stomach and retroflexed. The proximal stomach appeared to be normal except for very small hiatal hernia not seen from above. I attempted to take deep biopsies of the submucosal mass in the antrum. I then sampled a few of the gastric polyps I had seen in the body. The scope was straightened and brought out through the esophagus again. No lesions were seen. The scope was removed and the patient tolerated the procedure well. Scope withdrawal time: Not applicable Sedation minutes: 15 Findings: polyp (Gastric fundic in the body) and other findings (Submucosal mass in the antrum along the greater curve) Specimen(s): other (Polyp biopsies and attempt at biopsy the submucosal mass) Complications: none Recommendations: Will call with biopsy results Follow up: weeks (1-2) Disposition: PACU
[2018-12-04 08:45] VITALS: BP 114/69; PULSE 78; RESP 12; TEMP 36.7; O2SAT 97
[2018-12-04 08:50] VITALS: BP 116/66; PULSE 67; RESP 12; O2SAT 96
[2018-12-04 08:57] VITALS: BP 110/67; PULSE 77; RESP 12; O2SAT 95
[2018-12-04 09:07] VITALS: BP 123/70; PULSE 72; RESP 16; TEMP 36.2; O2SAT 96
== END 2018-12-04 09:15 | disposition home or self-care (01) ==
PROVIDERS: Family Provider Family Medicine; PCP Family Medicine; Visit Provider Specialist
PROC: 0DJ08ZZ Inspection of Upper Intestinal Tract, Via Natural or Artificial Opening Endoscopic (ICD-10-PCS; CPT 43235; principal; 2018-12-04 07:45)
DX: R93.89 Abnormal findings on diagnostic imaging of other specified body structures (principal); K21.9 Gastro-esophageal reflux disease without esophagitis; I10 Essential (primary) hypertension; E78.5 Hyperlipidemia, unspecified
CPT/HCPCS: 43239; 88305; 88342; 99152; J2250; J3010

== ENCOUNTER → 2024-06-21 12:41 | Outpatient (CLI) | payer MEDICARE, OTHER, SELFPAY ==
--- NOTE | 2024-06-21 12:43 | DI.ECHO.S_ITS ---
[facility]+ [facility] : : [address] : : [place] : : [address] : : Phone: [phone] Echocardiogram Report + + :Name: LOULOU MOLINA Study Date: 06/21/2024 Height: 68 in : :[facility] ReadingLocation: Weight: 165 lb : : Gender: Male BSA: 1.9 m2 : :: 1940 Age: 84 yrs BP: 151/86 mmHg: :Reason For Study: CARDIAC MURMUR : :Ordering Physician: ESTEFANIA, : :LATRICIA Performed By: Janay Brooks : :Referring: LATRICIA MAC : + + Interpretation Summary Normal sinus rhythm. Normal LV size, wall thickness, wall motion and LV systolic function. EF is 60-65%. Stage I diastolic dysfunction. No significant valvular abnormalities. Normal chamber sizes. No prior study available for comparison. Procedure: A two-dimensional transthoracic echocardiogram with color flow and Doppler was performed. The study quality was technically adequate. There is no prior echocardiogram noted for this patient. The patient was in sinus rhythm with heart rates between 60-73 bpm during the exam. Left Ventricle: The left ventricle is normal in size and wall thickness. The ejection fraction is estimated to be 60-65%. Right Ventricle: The right ventricle is normal size. Right ventricular systolic function is at the lower limits of normal. Atria: The left atrial size is normal. Right atrial size is normal. There is no Doppler evidence for an interatrial shunt. The atrial septum is aneurysmal. Mitral Valve: The mitral valve is normal in structure and function. There is mild mitral regurgitation. Aortic Valve: The aortic valve is trileaflet. The aortic valve opens well. There is no aortic valve stenosis. No aortic regurgitation is present. Tricuspid Valve: The tricuspid valve is normal in structure and function. There is mild tricuspid regurgitation. The right ventricular systolic pressure is estimated to be at least 28 mmHg based on an estimated right atrial pressure of 3 mm Hg. Pulmonic Valve: The pulmonic valve is not well seen, but is grossly normal. There is mild pulmonic regurgitation. Great Vessels: The aortic root is normal size. The dimensions of the ascending aorta are normal. The IVC is of normal diameter and collapses greater than 50% with a sniff. This suggests a low right atrial pressure of 3 mm Hg. Pericardium/ Pleura There is no pericardial effusion. There is no pleural effusion. MMode/2D Measurements & Calculations LVIDd: 5.0 cm LVOT diam: 2.0 cm LVIDs: 3.5 cm Ao root diam: 3.2 cm FS: 29.8 % asc Aorta Diam: 3.3 cm IVSd: 0.80 cm Ao Arch Diam (Prox Trans): 2.4 cm LVPWd: 0.92 cm LV shane. diameter/BSA (cm/m^2): 2.7 LV sys. diameter/BSA (cm/m^2): 1.9 LA A2 area: 19.1 cm2 RA long axis: 5.8 cm LA A4 area: 16.5 cm2 RA area: 18.0 cm2 LA length (vol): 5.2 cm RA vol: 47.2 ml LA vol: 51.2 ml RA : 25.0 ml/m2 LA vol index: 27.2 ml/m2 IVC diam: 1.3 cm RVD1 (basal): 4.0 cm RVD2 (mid): 3.4 cm TAPSE: 1.6 cm Doppler Measurements & Calculations Ao V2 max: 157.5 cm/sec LVOT Max Jim: 82.0 cm/sec Ao V2 mean: 114.6 cm/sec LV V1 max P.7 mmHg Ao max P.9 mmHg LV V1 VTI: 17.1 cm Ao mean P.8 mmHg SURI(I,D): 1.7 cm2 Ao V2 VTI: 32.3 cm SURI(V,D): 1.7 cm2 sev ratio: 0.53 SURI indexed to BSA (cm^2/m^2): 0.89 MV E max jim: 44.4 cm/sec TR max jim: 249.1 cm/sec MV A max jim: 64.6 cm/sec TR max P.8 mmHg MV E/A: 0.69 PA V2 max: 169.6 cm/sec Med Peak E' Jim: 7.0 cm/sec PA V2 mean: 123.0 cm/sec E/E' med: 6.3 PA mean P.8 mmHg Lat Peak E' Jim: 10.9 cm/sec PA pr(Accel): 34.5 mmHg E/E' lat: 4.1 E/e' average: 5.2 MV dec time: 0.37 sec SV(LVOT): 54.3 ml Electronically signed by: Meka Ryder M.D. on Reading Physician:06/22/2024 06:18 AM
== END ==
PROVIDERS: Family Provider Family Medicine; PCP Family Medicine; Referring Provider Family Medicine; Visit Provider Family Medicine
DX: R01.1 Cardiac murmur, unspecified (principal); I08.1 Rheumatic disorders of both mitral and tricuspid valves
CPT/HCPCS: 93306

== ENCOUNTER 2025-01-20 14:52 | Emergency (ER) | payer MEDICARE, OTHER, SELFPAY ==
[2025-01-20] VITALS (8 sets, daily range): BP systolic 159–182; BP diastolic 76–81; PULSE 64–86; RESP 14–22; TEMP 36.6; O2SAT 97–100; BMI 25.4
--- NOTE | 2025-01-20 14:53 | DI.CT.S_ITS ---
PROCEDURE: CT ANGIO HEAD AND NECK INDICATIONS: code stroke TECHNIQUE: After the administration of intravenous contrast, 1 mm thick sections acquired from the aortic arch through the [place] of [place]. 3-dimensional ayglqmg-jxvatihsu-pklttkmjqs (MIP) and/or volume rendering reformats were acquired of the central intracranial vasculature and neck separately. For radiation dose reduction, the following was used: automated exposure control, adjustment of mA and/or kV according to patient size. COMPARISON: [facility], CT, CT STROKE, 01/20/2025, 14:57. FINDINGS: Image quality: Diagnostic. BRAIN: Please see separately dictated noncontrast CT of the head performed at the same time. No abnormal intracranial arterial phase enhancement. HEAD CT ANGIOGRAPHY: Anterior circulation: Intracranial internal carotid arteries are normal in size and flow. The flow within the paired anterior cerebral arteries is normal and symmetric. The flow within the middle cerebral arteries is normal and symmetric. The anterior communicating artery is seen. No aneurysms are seen. Posterior circulation: Visualized portions of the vertebral arteries demonstrate normal caliber, and join to form a normal appearing basilar artery. Flow within the posterior cerebral arteries is normal and symmetric. No aneurysms are seen. NECK CT ANGIOGRAPHY: Carotid system: The great vessels demonstrate a conventional anatomy as they arise from the aortic arch. The origins of the common carotid arteries appear patent. The common carotid arteries demonstrate normal caliber and courses. Calcified and noncalcified atherosclerotic plaque at the left carotid bifurcation resulting in greater than 80% stenosis. A small free-floating component is seen at the distal plaque margin that could indicate instability. No significant narrowing of the right internal carotid artery. Posterior circulation: The origins of the vertebral arteries both appear widely patent. The more superior extracranial portions of both vertebral arteries also demonstrate normal courses and calibers. They join to form a normal appearing basilar artery. Soft tissues: Visualized neck soft tissues demonstrate no suspicious abnormalities. Bones: No suspicious bony lesions. Multilevel degenerative changes in the included spine. IMPRESSION: 1. No significant intracranial arterial abnormality is seen. 2. 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 Irregular appearance of the distal plaque margin is seen that could indicate unstable plaque or less likely focal dissection. Any quantitative measurements of stenosis were performed using NASCET criteria. Findings were discussed with the referring provider, Dr. Strickland, by telephone on 01/20/2025 at 3:31 PM. Approved by: Mac Appiah M.D. on 01/20/2025 at 15:32
--- NOTE | 2025-01-20 14:53 | DI.CT.S_ITS ---
PROCEDURE: CT STROKE INDICATIONS: Positive BE-FAST, Stroke symptoms TECHNIQUE: Noncontrast 4.5 mm thick angled axial sections acquired from the foramen magnum to the vertex, with coronal reformats. For radiation dose reduction, the following was used: automated exposure control, adjustment of mA and/or kV according to patient size. COMPARISON: None. FINDINGS: Image quality: Diagnostic. CSF spaces: Basal cisterns are patent. No extra-axial fluid collections. The ventricles are symmetric in size and shape. Brain: No acute intracranial hemorrhage or mass effect. There is cerebral volume loss for age, with resultant ventricular and sulcal prominence. There are periventricular and deep white matter chronic small vessel ischemic changes. There is intracranial internal carotid artery atherosclerosis. Skull and face: Calvarium and visualized facial bones appear intact, without suspicious lesions. Sinuses: Visualized sinuses and mastoids are clear. IMPRESSION: 1. No acute intracranial pathology. 2. Mild chronic microvascular ischemic changes and generalized parenchymal volume loss. Findings were discussed with the referring provider, Dr. Strickland, by telephone on 01/20/2025 at 3:06 PM. This study fulfills neurological imaging criteria for inclusion or exclusion of acute stroke therapies based on available published neurological guidelines. Approved by: Mac Appiah M.D. on 01/20/2025 at 15:08
--- NOTE | 2025-01-20 14:53 | DI.RAD.S_ITS ---
PROCEDURE: XR CHEST 1V INDICATIONS: Possible stroke TECHNIQUE: One view of the chest was acquired. COMPARISON: None. FINDINGS: Surgical changes and devices: None. Lungs and pleura: Lungs are clear. No pleural effusions or pneumothorax. Mediastinum: Mediastinal contours appear normal. Heart size is normal. Bones and chest wall: No suspicious bony lesions. Overlying soft tissues appear unremarkable. IMPRESSION: No acute cardiopulmonary abnormality is seen. Approved by: Mac Appiah M.D. on 01/20/2025 at 15:48
[2025-01-20 15:09] LABS: Add Manual Diff / Slide Review NO; Basophils Absolute Auto 0 /uL (0-100); Basophils Percent Auto 0.4 % (0-2); Eosinophils Absolute Auto 100 /uL (0-450); Eosinophils Percent Auto 1.8 % (2-4); Hematocrit 39.5 % (41-53); Hemoglobin 13.4 g/dL (13.5-17.5); Lymphocytes Absolute Auto 700 /uL (1100-4500); Lymphocytes Percent Auto 14.2 % (25-40); Mean Corpuscular HGB Conc 33.9 % (30-36); Mean Corpuscular Hemoglobin 31.1 PG (26-34); Mean Corpuscular Volume 91.8 fL (80-100); Monocytes Absolute Auto 600 /uL (0-900); Neutrophils Absolute Auto 3300 /uL (1500-7000); Neutrophils Percent Auto 71.6 % (50-75); Platelet Count 201 X10^3/uL (150-400); Red Cell Distribution Width 14.4 % (11.6-14.8); White Blood Cell Count 4.7 X10^3/uL (4.5-11.0)
[2025-01-20 15:13] LABS: Prothrombin Time 11.3 SECONDS (9.4-12.5)
--- NOTE | 2025-01-20 15:15 | PC.NURSE ---
@ 1400 symptom onset of feeling unwell, present in home and aware within first mins of onset. Last well approx 15-20 mins prior to onset. Patient quickly progressed from feeling unwell to Left sided facial droop & slurred speech & Right arm decreased sensation & some slow word finding -- symptoms improved rapidly at ER arrival without any notable symptoms and NIH negative = 0 for physician @ 1503 & NIH remained negative = 0 for primary RN @ 1515. Physician to room immediately upon patient returning from CT scan. Patient taken immediately to CT scan upon ER arrival with scan done @ 1457 and sent to radiology/stroke physicians for review. Stroke cart on standby in room @ 1509, not requested at time by physician or stroke physicians.
[2025-01-20 15:16] LABS: PTT Partial Thromboplastin Tim 32 SECONDS (25.1-36.5)
[2025-01-20 15:19] LABS: Alanine Aminotransferase 25 IU/L (<50); Albumin 3.9 g/dL (3.5-5.0); Albumin Globulin Ratio 1.6 (1.0-2.8); Alkaline Phosphatase 78 U/L (38-126); Aspartate Aminotransferase 31 IU/L (17-59); BUN Creatinine Ratio 11.9 (6-22); Bilirubin Total 0.8 mg/dL (0.2-1.3); Blood Urea Nitrogen 18 mg/dL (9-20); Calcium 9.2 mg/dL (8.4-10.2); Carbon Dioxide 28 mmol/L (22-32); Chloride 107 mmol/L (98-107); Creatine Kinase 112 U/L (55-170); Estimated Glomerular Filt Rate 46 mL/min (>60); Globulin 2.5 g/dL (1.7-4.1); Glucose 106 mg/dL (80-110); HEMOLYSIS < 15 (0-50); Potassium 4.5 mmol/L (3.4-5.1); Sodium 142 mmol/L (137-145); Total Protein 6.4 g/dL (6.3-8.2)
--- NOTE | 2025-01-20 15:20 | ED_ITS ---
HPI - General Adult General Chief complaint: Neuro Symptoms/Deficit Stated complaint: Code Stroke Time Seen by Provider: 01/20/25 15:13 History of Present Illness HPI narrative: 85-year-old right-handed male with no history of known stroke or TIA, one hour prior to arrival noted that he had some difficulty getting his speech out, garbled speech, seemed a little unsteady in his gait. No fall known. Had some transient numbness to the right fingers and hand that seems to be improving. Seems to be able to speak clearly. EMS had concern about right facial droop but not sure if there is really any facial droop, patient thinks that at rest he has been told that he has a facial droop in the past, when he smiles his smile seems to be normal per . Patient having no problem with his secretions. No other symptoms at this time. Arrived by EMS with code stroke, went immediately to CT suite for stroke related imaging. Patient takes baby aspirin daily, no other blood thinner medications. Related Data Home Medications Medication Instructions Recorded Confirmed Fish Oil 1,200 mg PO QPM 10/01/18 10/24/18 aspirin 81 mg tablet,delayed 81 mg PO QPM 10/01/18 12/04/18 release calcium 600 mg-D3 20 mcg-magnesium 1 tab PO QPM 10/01/18 12/04/18 50 ya-Ro-rzddxq-aracelis-boron tablet (Calcium 600-D3 Plus (mag-zinc)) calcium polycarbophil 625 mg 625 mg PO QPM 10/01/18 12/04/18 tablet (Fiber (calcium polycarbophil)) folic acid 400 mcg tablet 0.4 mg PO QPM 10/01/18 10/24/18 lansoprazole 30 mg capsule,delayed 30 mg PO DAILY 10/01/18 12/04/18 release lovastatin 40 mg tablet 40 mg PO QPM 10/01/18 12/04/18 tamsulosin 0.4 mg capsule 0.8 mg PO QPM 10/01/18 10/24/18 Previous Rx's Medication Instructions Recorded sulfamethoxazole 800 1 tab PO BID #14 tabs 10/01/18 mg-trimethoprim 160 mg tablet (Bactrim DS) Allergies Allergy/AdvReac Type Severity Reaction Status Date / Time No Known Drug Allergies Allergy Verified 10/24/18 13:17 Patient History Medical History (Updated 01/20/25 @ 16:09 by Jimbo Strickland MD) Kidney stones BPH (benign prostatic hyperplasia) Hyperlipidemia HTN (hypertension) GERD (gastroesophageal reflux disease) Surgical History History of tonsillectomy Social History household members: spouse Smoking Status: Never smoker alcohol intake frequency: 0-2 drinks per day Exam Narrative Exam Narrative: GENERAL: Well-developed patient, in mild distress. HEAD: Atraumatic. Normocephalic. EYES: Pupils equal round and reactive. Extraocular motions intact. No scleral icterus. No injection or drainage. ENT: Nose without bleeding, purulent drainage. Throat without erythema, tonsillar hypertrophy or exudate. Airway patent. NECK: Trachea midline. Non tender CARDIOVASCULAR: Regular rate and rhythm without murmurs, gallops, or rubs. RESPIRATORY: Clear to auscultation. Breath sounds equal bilaterally. No wheezes, rales, or rhonchi. GASTROINTESTINAL: Abdomen soft, non-tender, nondistended. EXTREMITIES: No edema or joint tenderness. BACK: Nontender without deformity or crepitance. No flank tenderness. NEURO: AOx3. Cranial nerves without definite new changes, possible right facial droop at rest but patient believes this is not new, seems to be equivocal about this, but when patient smiles broadly the at bedside thinks that looks looks normal. Remainder of cranial nerve exam unremarkable. Motor 5/5 upper extremities. Motor 5/5 lower extremities. Oazgmd-ad-ffha testing unremarkable. Speech seems clear. Intact to light tense sensation upper face midface lower face, neck, upper extremities, lower extremities, on both sides. SKIN: No rash or erythema of visible areas Initial Vital Signs Initial Vital Signs: Vital Signs Temperature 98 F 01/20/25 14:53 Pulse Rate 66 01/20/25 14:53 Respiratory Rate 20 01/20/25 14:53 Blood Pressure 163/79 H 01/20/25 14:53 Pulse Oximetry 100 01/20/25 14:53 Oxygen Delivery Method Room Air 01/20/25 14:53 Course Orders Ordered: ED Orders 01/20/25 14:[address] angio head and neck Stat XR chest 1V Stat EKG-12 Lead Stat 01/20/25 14:56 Complete Blood Count AUTO DIFF Stat Comprehensive Metabolic Panel Stat Magnesium Stat PTT Partial Thromboplastin Ulisses Stat Prothrombin Time INR Stat Troponin & CK Cardiac Panel Stat 01/20/25 16:05 Urine Drug Screen, Rapid Stat Discontinued Medications Heparin Sodium/Dextrose (Heparin Drip) 25,000 unit in 500 mls @ 19.848 mls/hr IV CONT JAYDON; Protocol Last Admin: 01/20/25 16:08 Dose: 12 units/kg/hr, 19.848 mls/hr Documented By: RLC Co-signed By: ALEJANDRO Ondansetron HCl (Ondansetron 4 Mg/2 Ml Inj) 4 mg IV NOW PRN PRN Reason: Nausea And Vomiting Ondansetron HCl (Ondansetron 4 Mg Odt) 4 mg SL NOW PRN PRN Reason: Nausea And Vomiting Vital Signs Vital signs: Vital Signs - 8 hr 01/20/25 14:53 01/20/25 15:04 01/20/25 15:07 Temperature 98 F Pulse Rate 66 74 69 Respiratory Rate 20 22 16 Blood Pressure 163/79 H Pulse Oximetry 100 97 99 Oxygen Delivery Method Room Air 01/20/25 15:07 01/20/25 15:09 01/20/25 15:09 Temperature Pulse Rate 68 Respiratory Rate 14 Blood Pressure 182/81 H 169/77 H Pulse Oximetry 98 Oxygen Delivery Method Room Air 01/20/25 15:15 01/20/25 15:15 01/20/25 15:30 Temperature Pulse Rate 66 Respiratory Rate Blood Pressure 163/79 H 168/81 H Pulse Oximetry 98 Oxygen Delivery Method 01/20/25 15:30 01/20/25 15:45 01/20/25 15:45 Temperature Pulse Rate 67 64 Respiratory Rate 19 19 Blood Pressure 159/76 H Pulse Oximetry 99 97 Oxygen Delivery Method Room Air 01/20/25 16:00 Temperature Pulse Rate 86 Respiratory Rate 20 Blood Pressure Pulse Oximetry Oxygen Delivery Method Room Air Medical Decision Making Lab Data Lab results reviewed: Yes I reviewed the patient's lab results. Lab results narrative: White blood cell count 4700, hemoglobin 13.4, platelets adequate. Glucose 106. BUN 18 with creatinine 1.51 noted. Sodium 142, potassium 4.5, serum CO2 28, serum chloride 107. Liver functions normal. Urine dip neg. UDS neg. Troponin not elevated. 01/20/25 14:56 01/20/25 14:56 Labs: Lab Results 01/20/25 01/20/25 Range/Units 14:56 16:05 WBC 4.7 (4.5-11.0) X10^3/uL RBC 4.30 L (4.5-5.9) X10^6/uL Hgb 13.4 L (13.5-17.5) g/dL Hct 39.5 L (41-53) % MCV 91.8 (80-100) fL MCH 31.1 (26-34) PG MCHC 33.9 (30-36) % RDW 14.4 (11.6-14.8) % Plt Count 201 (150-400) X10^3/uL Neut % (Auto) 71.6 (50-75) % Lymph % (Auto) 14.2 L (25-40) % [place] % (Auto) 12.0 (3-14) % Eos % (Auto) 1.8 L (2-4) % Baso % (Auto) 0.4 (0-2) % Neut # (Auto) 3300 (2794-2269) /uL Lymph # (Auto) 700 L (3296-1275) /uL [place] # (Auto) 600 (0-900) /uL Eos # (Auto) 100 (0-450) /uL Baso # (Auto) 0 (0-100) /uL PT 11.3 (9.4-12.5) SECONDS INR 1.0 (0.9-1.3) APTT 32 (25.1-36.5) SECONDS Sodium 142 (137-145) mmol/L Potassium 4.5 (3.4-5.1) mmol/L Chloride 107 (98-107) mmol/L Carbon Dioxide 28 (22-32) mmol/L BUN 18 (9-20) mg/dL Creatinine 1.51 H (0.66-1.25) mg/dL Estimated GFR 46 L (>60) mL/min BUN/Creatinine Ratio 11.9 (6-22) Glucose 106 (80-110) mg/dL Calcium 9.2 (8.4-10.2) mg/dL Magnesium 2.0 (1.6-2.3) mg/dL Total Bilirubin 0.8 (0.2-1.3) mg/dL AST 31 (17-59) IU/L ALT 25 (<50) IU/L Alkaline Phosphatase 78 (38-126) U/L Total Creatine Kinase 112 (55-170) U/L Troponin I < 0.012 (0.01-0.034) ng/mL Total Protein 6.4 (6.3-8.2) g/dL Albumin 3.9 (3.5-5.0) g/dL Globulin 2.5 (1.7-4.1) g/dL Albumin/Globulin Ratio 1.6 (1.0-2.8) U Opiates 300ng/mL cut Negative (Negative) Ur Oxycodone Screen Negative (Negative) Urine Methadone Screen Negative (Negative) Ur Barbiturates Screen Negative (Negative) U Tricyclic Antidepress Negative (Negative) Ur Phencyclidine Scrn Negative (Negative) Ur Amphetamines Screen Negative (Negative) U Methamphetamines Scrn Negative (Negative) Ur MDMA Scrn (Ecstasy) Negative (Negative) U Benzodiazepines Scrn Negative (Negative) Urine Cocaine Screen Negative (Negative) U Marijuana (THC) Screen Negative (Negative) Urine pH Normal (Normal) Urine Specific [place] Normal (Normal) Ur Creatinine Normal (Normal) Point of Care Testing Glucose POC 106 Urine Dip Bedside Urine Glucose Negative Bedside Urine Bilirubin - Negative Bedside Urine Ketone - Negative Urine Specific [place] 1.005 Bedside Urine Occult Blood ++ Bedside Urine pH 7.0 Bedside Urine Protein - Negative Bedside Urine Urobilinogen - Negative Bedside Urine Nitrite - Negative Bedside Urine Leukocytes - Negative Esterase Point of care testing: Point of Care Testing Glucose POC 106 Urine Dip Bedside Urine Glucose Negative Bedside Urine Bilirubin - Negative Bedside Urine Ketone - Negative Urine Specific [place] 1.005 Bedside Urine Occult Blood ++ Bedside Urine pH 7.0 Bedside Urine Protein - Negative Bedside Urine Urobilinogen - Negative Bedside Urine Nitrite - Negative Bedside Urine Leukocytes - Negative Esterase Imaging Data Chest x-ray: Radiologist's Impression: Close Brain CT (Signed) Mac Appiah - 01/20/25 Chest X-Ray (Signed) Mac Appiah - 01/20/25 Head/Neck CTA (Signed) Mac Appiah - 01/20/[address] [address] XRay Report Signed Patient: Nash Puentes MR#: [id number] : 1940 Acct:[id number] Age/Sex: 85 / M Date of Service: 01/20/25 Loc: ED Accession Number: [id number] Procedure: XR chest 1V Ordering Provider: Jimbo Strickland MD PROCEDURE: XR CHEST 1V INDICATIONS: Possible stroke TECHNIQUE: One view of the chest was acquired. COMPARISON: None. FINDINGS: Surgical changes and devices: None. Lungs and pleura: Lungs are clear. No pleural effusions or pneumothorax. Mediastinum: Mediastinal contours appear normal. Heart size is normal. Bones and chest wall: No suspicious bony lesions. Overlying soft tissues appear unremarkable. IMPRESSION: No acute cardiopulmonary abnormality is seen. Approved by: Mac Appiah M.D. on 01/20/2025 at 15:48 CT scan - head: Radiologist's Impression: Close Brain CT (Signed) Mac Appiah - 01/20/25 Chest X-Ray (Signed) Mac Appiah - 01/20/25 Head/Neck CTA (Signed) Mac Appiah - 01/20/25 [place] [address] CT Scan Report Signed Patient: Nash Puentes MR#: [id number] : 1940 Acct:[id number] Age/Sex: 85 / M Date of Service: 01/20/25 Loc: ED Accession Number: [id number] Procedure: CT Stroke Ordering Provider: Jimbo Strickland MD PROCEDURE: CT STROKE INDICATIONS: Positive BE-FAST, Stroke symptoms TECHNIQUE: Noncontrast 4.5 mm thick angled axial sections acquired from the foramen magnum to the vertex, with coronal reformats. For radiation dose reduction, the following was used: automated exposure control, adjustment of mA and/or kV according to patient size. COMPARISON: None. FINDINGS: Image quality: Diagnostic. CSF spaces: Basal cisterns are patent. No extra-axial fluid collections. The ventricles are symmetric in size and shape. Brain: No acute intracranial hemorrhage or mass effect. There is cerebral volume loss for age, with resultant ventricular and sulcal prominence. There are periventricular and deep white matter chronic small vessel ischemic changes. There is intracranial internal carotid artery atherosclerosis. Skull and face: Calvarium and visualized facial bones appear intact, without suspicious lesions. Sinuses: Visualized sinuses and mastoids are clear. IMPRESSION: 1. No acute intracranial pathology. 2. Mild chronic microvascular ischemic changes and generalized parenchymal volume loss. Findings were discussed with the referring provider, Dr. Strickland, by telephone on 01/20/2025 at 3:06 PM. This study fulfills neurological imaging criteria for inclusion or exclusion of acute stroke therapies based on available published neurological guidelines. Approved by: Mac Appiah M.D. on 01/20/2025 at 15:08 CTA - brain/neck: Radiologist's Impression: [address] [address] [address] Scan Report Signed Patient: Nash Puentes MR#: [id number] : 1940 Acct:[id number] Age/Sex: 85 / M Date of Service: 01/20/25 Loc: ED Accession Number: [id number] Procedure: CT angio head and neck Ordering Provider: Jimbo Strickland MD PROCEDURE: CT ANGIO HEAD AND NECK INDICATIONS: code stroke TECHNIQUE: After the administration of intravenous contrast, 1 mm thick sections acquired from the aortic arch through the [place] of [place]. 3-dimensional gnndhlv-uogdnsmaz-vvbyilgmwz (MIP) and/or volume rendering reformats were acquired of the central intracranial vasculature and neck separately. For radiation dose reduction, the following was used: automated exposure control, adjustment of mA and/or kV according to patient size. COMPARISON: Merged With [facility], CT, CT STROKE, 01/20/2025, 14:57. FINDINGS: Image quality: Diagnostic. BRAIN: Please see separately dictated noncontrast CT of the head performed at the same time. No abnormal intracranial arterial phase enhancement. HEAD CT ANGIOGRAPHY: Anterior circulation: Intracranial internal carotid arteries are normal in size and flow. The flow within the paired anterior cerebral arteries is normal and symmetric. The flow within the middle cerebral arteries is normal and symmetric. The anterior communicating artery is seen. No aneurysms are seen. Posterior circulation: Visualized portions of the vertebral arteries demonstrate normal caliber, and join to form a normal appearing basilar artery. Flow within the posterior cerebral arteries is normal and symmetric. No aneurysms are seen. NECK CT ANGIOGRAPHY: Carotid system: The great vessels demonstrate a conventional anatomy as they arise from the aortic arch. The origins of the common carotid arteries appear patent. The common carotid arteries demonstrate normal caliber and courses. Calcified and noncalcified atherosclerotic plaque at the left carotid bifurcation resulting in greater than 80% stenosis. A small free-floating component is seen at the distal plaque margin that could indicate instability. No significant narrowing of the right internal carotid artery. Posterior circulation: The origins of the vertebral arteries both appear widely patent. The more superior extracranial portions of both vertebral arteries also demonstrate normal courses and calibers. They join to form a normal appearing basilar artery. Soft tissues: Visualized neck soft tissues demonstrate no suspicious abnormalities. Bones: No suspicious bony lesions. Multilevel degenerative changes in the included spine. IMPRESSION: 1. No significant intracranial arterial abnormality is seen. 2. 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 Irregular appearance of the distal plaque margin is seen that could indicate unstable plaque or less likely focal dissection. Any quantitative measurements of stenosis were performed using NASCET criteria. Findings were discussed with the referring provider, Dr. Strickland, by telephone on 01/20/2025 at 3:31 PM. Approved by: Mac Appiah M.D. on 01/20/2025 at 15:32 MDM Narrative Medical decision making narrative: 85-year-old male with no history of known TIA/stroke, right-handed, with acute onset difficulty speaking and some difficulty with gait and getting his words out, transient right hand/fingers numbness that seems to be resolved. Speech seemed to be improved. No obvious facial droop on smiling per if at bedside. CT head noncontrast, CT angiogram head and neck vessels done on arrival by EMS for stroke protocol, before arrival to room. Results are pending at this time. EKG and labs pending. Glucose 106 noted. Seems to be rapidly improving in his symptoms, possible TIA. He takes baby aspirin daily. CT head noncontrast study, no acute changes. See radiology report, after their phone call about results. CT head/neck angiogram, shows severe narrowing at left ICA, with possible free floating fragment that might be unstable plaque. Phone call from Radiology, reports still to be imported. No vascular surgery available here. Symptoms improved, consider heparin, we will obtain neuro consult. Possible transfer to neurolgy and vascular surgery capable facility for further consulations. 1540, case discussed with stroke neurology Dr Rolle [facility] who reviewed angiogram, agrees with need for transfer, advises low intensity IV heparin infusion 12 units/kg/hr with no bolus, accepts for transfer. Ground transportation okay if they can maintain IV heparin infusion. Transfer via ground EMS Critical Care Time Critical Care Time Critical Care Time: Yes Total Critical Care Time: 35 Attestation: The high probability of a clinically significant, sudden or life threatening deterioration of the [neurologic, cerebrovascular] systems required my full and direct attention, intervention and personal management. The aggregate critical care time was [35] minutes. This time is in addition to time spent performing reported procedures but includes the following: [x] Data Review and interpretation [x] Patient assessment and monitoring of vital signs [x] Documentation [x] Medication orders and management Discharge Plan Departure Patient Disposition: Xfer [facility] Clinical Impression: Transient ischemic attack (TIA), Internal carotid artery stenosis Prescriptions: No Action lovastatin 40 mg Tablet 40 mg PO QPM folic acid 400 mcg Tablet 0.4 mg PO QPM aspirin 81 mg Tablet,Delayed Release (Dr/Ec) 81 mg PO QPM tamsulosin 0.4 mg Capsule 0.8 mg PO QPM lansoprazole 30 mg Capsule,Delayed Release(Dr/Ec) 30 mg PO DAILY calcium polycarbophil [Fiber (calcium polycarbophil)] 625 mg Tablet 625 mg PO QPM Ca-D3-mag oi-nmmb-trt-antolin-bor [Calcium 600-D3 Plus (mag-zinc)] 600 mg calcium- 800 unit-50 mg Tablet 1 tab PO QPM Fish Oil 1,200 mg 1,200 mg PO QPM sulfamethoxazole-trimethoprim [Bactrim DS] 800-160 mg tablet 1 tab PO BID Qty: 14 0RF Referrals: Booker Hancock MD [Primary Care Provider] -
[2025-01-20 15:30] LABS: Troponin I < 0.012 ng/mL (0.01-0.034)
--- NOTE | 2025-01-20 15:33 | EKG_ITS ---
[address] [address] Test Date: 2025-01-20 Pat Name: Nash Puentes Department: Room: Gender: Male [employer]: CARY : 1940 Requested By: Order Number: [id number] Reading MD: Nash Wilson Measurements Intervals [place] Rate: 67 P: 52 NM: 160 QRS: -13 QRSD: 94 T: 32 QT: 418 QTc: 441 Interpretive Statements Normal sinus rhythm Electronically Signed On 01-27-2025 18:53:48 PDT by Nash Wilson
[2025-01-20] MEDS: HEPARIN DRIP 25,000 UNIT/500 ML IV.SOLN 19.848 UNIT IV (16:08)
[2025-01-20 16:19] LABS: Ur Creatinine Normal (Normal); Ur Specific Gravity Normal (Normal); Urine Amphetamines Negative (Negative); Urine Barbiturates Negative (Negative); Urine Benzodiazepines Negative (Negative); Urine Cocaine Negative (Negative); Urine MDMA Negative (Negative); Urine Methadone Negative (Negative); Urine Methamphetamines Negative (Negative); Urine Opiates Negative (Negative); Urine Oxycodone Negative (Negative); Urine Phencyclidine Negative (Negative); Urine THC Negative (Negative); Urine Tricyclic Antidepressant Negative (Negative); Urine pH Normal (Normal)
== END 2025-01-20 17:19 | disposition short-term general hospital (02) ==
PROVIDERS: Emergency Provider Emergency Medicine; Family Provider Family Medicine; PCP Family Medicine
DX: G45.9 Transient cerebral ischemic attack, unspecified (principal); R47.89 Other speech disturbances; R20.0 Anesthesia of skin
CPT/HCPCS: 36415; 70450; 70496; 70498; 71045; 80053; 80305; 81003; 82550; 82962; 83735; 84484; 85025; 85610; 85730; 93005; 96365; 99285; 99291; J1644; Q9967

== ENCOUNTER 2025-02-09 08:58 | Emergency (ER) | payer MEDICARE, OTHER, SELFPAY ==
[2025-02-09 09:08] VITALS: BP 142/72; PULSE 77; RESP 20; TEMP 37; O2SAT 97; BMI 23.6
--- NOTE | 2025-02-09 11:39 | ED_ITS ---
HPI - Extremity Problem <Magaly Cummins PA-C - Last Filed: 02/09/25 14:01> General Chief complaint: Extremity Problem,Nontraumatic Stated complaint: 2WK post surgery; LT lower leg numbness. Time Seen by Provider: 02/09/25 11:07 Source: patient Mode of arrival: Ambulatory History of Present Illness HPI Narrative: Mr. Puentes is a very pleasant 85-year-old gentleman with a past medical history of TIA/Left Internal carotid artery stenosis s/p surgery about 2 weeks ago, BPH who presents to the emergency department for left anterior hutchison numbness since 8:00 a.m. this morning. Patient came into the emergency department as a code stroke on 01/20/2025, was found to have greater than 80% narrowing of the left internal carotid artery with possible unstable plaque, he was transferred to [facility] on a heparin drip and reports having surgery to the left carotid artery and has been doing well since surgery. States that he does the frequent neuro checks at home that they were doing in the hospital and noticed this morning that his left anterior hutchison had a focal area of numbness from the dorsal midfoot to the mid hutchison. Reports that this numbness has been constant, no pins or needles or tingling pain. No weakness to the lower leg, no upper extremity or facial symptoms, no confusion dizziness lightheadedness chest pain shortness of breath nausea vomiting diarrhea or other concerns. He does have some chronic right facial droop from a prior skin cancer surgery, he has been having some aphasia since the TIA that is starting to improve. He is taking aspirin and clopidogrel. Related Data Home Medications Medication Instructions Recorded Confirmed Fish Oil 1,200 mg PO QPM 10/01/18 10/24/18 aspirin 81 mg tablet,delayed 81 mg PO QPM 10/01/18 12/04/18 release calcium 600 mg-D3 20 mcg-magnesium 1 tab PO QPM 10/01/18 12/04/18 50 ws-Yb-hozlbe-aracelis-boron tablet (Calcium 600-D3 Plus (mag-zinc)) calcium polycarbophil 625 mg 625 mg PO QPM 10/01/18 12/04/18 tablet (Fiber (calcium polycarbophil)) folic acid 400 mcg tablet 0.4 mg PO QPM 10/01/18 10/24/18 lansoprazole 30 mg capsule,delayed 30 mg PO DAILY 10/01/18 12/04/18 release lovastatin 40 mg tablet 40 mg PO QPM 10/01/18 12/04/18 tamsulosin 0.4 mg capsule 0.8 mg PO QPM 10/01/18 10/24/18 Previous Rx's Medication Instructions Recorded sulfamethoxazole 800 1 tab PO BID #14 tabs 10/01/18 mg-trimethoprim 160 mg tablet (Bactrim DS) Allergies Allergy/AdvReac Type Severity Reaction Status Date / Time No Known Drug Allergies Allergy Verified 10/24/18 13:17 Review of Systems <Magaly Cummins PA-C - Last Filed: 02/09/25 14:01> Review of Systems ROS Unobtainable: All systems reviewed & are unremarkable except as noted in HPI and below Patient History <Magaly Cummins PA-C - Last Filed: 02/09/25 14:01> Medical History (Updated 02/09/25 @ 13:57 by Magaly Cummins PA-C) Kidney stones BPH (benign prostatic hyperplasia) Hyperlipidemia HTN (hypertension) GERD (gastroesophageal reflux disease) Surgical History History of tonsillectomy Social History household members: spouse Smoking Status: Never smoker Smoking Status: Never smoker alcohol intake frequency: 0-2 drinks per day Exam <Magaly Cummins PA-C - Last Filed: 02/09/25 14:01> Narrative Exam Narrative: GENERAL: 85 year old patient appears stated age. Well-developed patient, in no acute distress. HEAD: Atraumatic. Normocephalic. EYES: PERRL. Extraocular motions intact. No scleral icterus. No injection or drainage. ENT: Nose without bleeding, purulent drainage. NECK: Trachea midline. Cervical ROM intact. Left lateral neck surgical scar healing well, clean, dry, intact with no drainage or surrounding erythema. CARDIOVASCULAR: Regular rate and rhythm. RESPIRATORY: ?Nonlabored respirations. ?Speaking in clear, full sentences. ?Clear to auscultation. Breath sounds equal bilaterally. No wheezes, rales, or rhonchi. ? EXTREMITIES: No edema or joint tenderness. Reported decreased sensation from the left dorsal midfoot to the left mid anterior hutchison, marked with a surgical marker. Sensation intact to light touch on the distal bilateral dorsal and plantar feet, posterior calves, upper extremities. NEURO: AOx3. ?Clear speech, occasional word-finding difficulty chronic since his last hospitalization however he is able to provide clear history. ?Moves all 4 extremities appropriately. No pronator drift. 5/5 bilateral graduate student instructor strength. 5 /5 bilateral plantar and dorsiflexion strength. No lower extremity drift. Normal dnmtyb-njgb-gszqtj, heel-hutchison. There is chronic right facial droop at rest that resolves with facial movement. Sensation intact to light touch throughout the face, upper extremities, lower extremities with the exception of the anterior left hutchison. Steady gait. When testing sharp and dull sensation on the patient's lower extremities, he does still feel pressure and dull on the left anterior hutchison, but reports decreased ability to feel sharp. SKIN: No rash or erythema of visible areas Initial Vital Signs Initial Vital Signs: Vital Signs Temperature 98.6 F 02/09/25 09:08 Pulse Rate 77 02/09/25 09:08 Respiratory Rate 20 02/09/25 09:08 Blood Pressure 142/72 H 02/09/25 09:08 Pulse Oximetry 97 02/09/25 09:08 Oxygen Delivery Method Room Air 02/09/25 09:08 <DO Danii Walker Last Filed: 02/09/25 18:28> Initial Vital Signs Initial Vital Signs: Vital Signs Temperature 98.6 F 02/09/25 09:08 Pulse Rate 77 02/09/25 09:08 Respiratory Rate 20 02/09/25 09:08 Blood Pressure 142/72 H 02/09/25 09:08 Pulse Oximetry 97 02/09/25 09:08 Oxygen Delivery Method Room Air 02/09/25 09:08 Course <Magaly Cummins PA-C - Last Filed: 02/09/25 14:01> Orders Ordered: ED Orders 02/09/25 12:04 perip venous low extrem lt Stat Vital Signs Vital signs: Vital Signs - 8 hr 02/09/25 14:10 Temperature 98.3 F Pulse Rate 60 Respiratory Rate 18 Blood Pressure 151/77 H Pulse Oximetry 99 Oxygen Delivery Method Room Air <DO Danii Walker Last Filed: 02/09/25 18:28> Orders Ordered: ED Orders 02/09/25 12:04 US periph venous low extrem lt Stat Vital Signs Vital signs: Vital Signs - 8 hr 02/09/25 14:10 Temperature 98.3 F Pulse Rate 60 Respiratory Rate 18 Blood Pressure 151/77 H Pulse Oximetry 99 Oxygen Delivery Method Room Air MDM - Extremity (Nontraumatic) <Magaly Cummins PA-C - Last Filed: 02/09/25 14:01> Medical Records Attestation: I reviewed the patient's medical records. Medical records narrative: Left internal carotid artery stenosis and TIA transferred to [facility] on 01/20/2025 Imaging Data LLE Venous US: Radiologist's Impression: PROCEDURE: US PERIPH VENOUS LOW EXTREM LT INDICATIONS: LLE numbness, recent surgery TECHNIQUE: Real-time imaging, as well as color and pulse Doppler interrogation, were performed of the lower extremity deep veins from the inguinal ligament to the popliteal fossa, with documentation of the visualized calf veins. COMPARISON: None. FINDINGS: The common femoral, femoral, popliteal, and the visualized calf veins are normally compressible, and free of intraluminal thrombus. Color and pulse Doppler demonstrate normal phasic intraluminal flow. There is normal augmentation response to distal compression maneuver. IMPRESSION: No findings of lower extremity deep venous thrombosis. MDM Narrative Medical decision making narrative: 85-year-old gentleman with a past medical history of TIA/Left Internal carotid artery stenosis s/p surgery about 2 weeks ago, BPH who presents to the emergency department for left anterior hutchison numbness since 8:00 a.m. this morning. Differential diagnosis includes but is not limited to neuropathy, DVT, cutaneous disorder, etc. On exam patient is in no acute distress, nontoxic appearing, vital signs within normal limits, no focal neurologic deficits except for reported left anterior hutchison focal numbness, dull and pressure sensation is intact but sharp sensation is decreased. Discussed case with attending ED physician. At this time patient is not having symptoms concerning for acute neurologic emergency we will proceed with left lower extremity ultrasound for concern of potential DVT given recent hospitalization and surgery. Vascular ultrasound negative for DVT. Patient states his symptoms have somewhat improved while he has been resting with his legs elevated, continues to have decreased sensation to sharp but he does have preserved sensation to pressure and dull. At this time we do not have 100% explanation for the patient's symptoms, but after shared decision-making with the patient his , they do f eel comfortable with him going home, following up with the PCP, and calling his vascular surgeon tomorrow. Advised that this time he monitor symptoms closely, incorporate compression socks. We discussed very strict ED return precautions and signs and symptoms and which he should call 911. Patient his verbalized understanding of all information are agreeable to this plan, he is ambulatory and stable for discharge home. Discharge Plan Departure Patient Disposition: Home Clinical Impression: Left leg paresthesias Instructions: DI for Numbness/Tingling Activity Restrictions/Additional Instructions: Dear Mr. Puentes, Today you were evaluated for decreased sensation on your left anterior hutchison. We performed an ultrasound of your left lower leg which revealed no blood clots, and you have strong pulses in the left leg. At this time you have no other neurologic abnormalities that we are concerned you need to stay in the hospital for. Sometimes, we do not always find the cause for your symptoms in one ER visit. The findings on your exam today and on your imaging is reassuring. At this time, it is not 100% certain what is causing your symptoms, but we feel you can be discharged from the emergency department. It is possible this may worsen or you may get better. Please, if you get worse or your symptoms change, return to the emergency department. Otherwise, please follow up with your primary care doctor in 1-2 days. I also recommend that you call your vascular surgeon to let them know about your symptoms as well. Continue taking all of your previously prescribed medications. I recommend incorporating compression socks into your wardrobe when you will be standing or walking for long period of time. If you develop any symptoms such as numbness or tingling in the face, upper arms, spreading on the legs, weakness, confusion, lightheadedness dizziness, or any other signs concerning for stroke please call 911 and return to the emergency department immediately. Please follow up with your primary care doctor within the next 2-3 days for ER follow-up. (If you do not have a PCP you can call [phone]. ?to schedule an appointment with an [facility] Primary Care Provider) IF YOU DEVELOP ANY NEW OR WORSENING SYMPTOMS, RETURN TO THE ER! Please read the attached instructions, they highlight more specific treatments and interventions for you at home. Thank you for letting me participate in your care, Magaly Cummins PA-C Prescriptions: No Action lovastatin 40 mg Tablet 40 mg PO QPM folic acid 400 mcg Tablet 0.4 mg PO QPM aspirin 81 mg Tablet,Delayed Release (Dr/Ec) 81 mg PO QPM tamsulosin 0.4 mg Capsule 0.8 mg PO QPM lansoprazole 30 mg Capsule,Delayed Release(Dr/Ec) 30 mg PO DAILY calcium polycarbophil [Fiber (calcium polycarbophil)] 625 mg Tablet 625 mg PO QPM Ca-D3-mag te-aooy-bkb-antolin-bor [Calcium 600-D3 Plus (mag-zinc)] 600 mg calcium- 800 unit-50 mg Tablet 1 tab PO QPM Fish Oil 1,200 mg 1,200 mg PO QPM sulfamethoxazole-trimethoprim [Bactrim DS] 800-160 mg tablet 1 tab PO BID Qty: 14 0RF Referrals: Booker Hancock MD [Primary Care Provider] - Stand Alone Forms: Patient Portal/API/Survey ED Sign-out <Eloise Cristina DO - Last Filed: 02/09/25 18:28> Cosign ED Attending Cosignature Attestation: I was immediately available in the department for consultation. Case discussed with myself. Patient has localized anterior hutchison numbness with no other neurologic changes. Discussed need with follow up for it his neurologist.
--- NOTE | 2025-02-09 12:04 | DI.US.S_ITS ---
PROCEDURE: US PERIPH VENOUS LOW EXTREM LT INDICATIONS: LLE numbness, recent surgery TECHNIQUE: Real-time imaging, as well as color and pulse Doppler interrogation, were performed of the lower extremity deep veins from the inguinal ligament to the popliteal fossa, with documentation of the visualized calf veins. COMPARISON: None. FINDINGS: The common femoral, femoral, popliteal, and the visualized calf veins are normally compressible, and free of intraluminal thrombus. Color and pulse Doppler demonstrate normal phasic intraluminal flow. There is normal augmentation response to distal compression maneuver. IMPRESSION: No findings of lower extremity deep venous thrombosis. Approved by: Albin Morse M.D. on 02/09/2025 at 12:23
[2025-02-09 14:10] VITALS: BP 151/77; PULSE 60; RESP 18; TEMP 36.8; O2SAT 99
== END 2025-02-09 14:10 | disposition home or self-care (01) ==
PROVIDERS: Emergency Provider Physician Assistant; Family Provider Family Medicine; PCP Family Medicine
DX: R20.2 Paresthesia of skin (principal); Z86.73 Personal history of transient ischemic attack (TIA), and cerebral infarction without residual deficits
CPT/HCPCS: 93971; 99281; 99283

== ENCOUNTER 2025-02-24 13:45 | Outpatient (RCR) | payer MEDICARE, OTHER, SELFPAY ==
--- NOTE | 2025-02-10 10:35 | ST.OPIE ---
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 Hancock Reason for Referral CVA Setting Assessment Location Outpatient Care Visit Type Note Type Initial evaluation Next Note Type Next Note Type Treatment Note Patient Information Identification Type Name Patient History Pt seen this date for speech/ language evaluation d/t CVA, 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 Pt is accompanied by his . He was sent to [facility] on 01/20 from the ER at [facility] d/t a CT scan showing that his carotid artery was narrowed. He had surgery on his carotid artery while at the hospital and was discharged on 01/26. He reports residual symptoms include word finding difficulties that he says happen all the time . He reports slight resistance communicating with others d/t word finding and has some embarrassment around it. He reports his goal for therapy is to improve word finding and overall communication. Hearing Hearing Level Normal Previous Therapy Previous Speech-Language Therapy No Subjective Patient Report Pt oriented and is a good historian of past medical history and timeline and able to communicate effectively with occasional word finding difficulties. He resides with his . Assessment Oral Motor Examination Completed Yes Results Slight left facial droop, however Pt reports this is how his faced looked prior to CVA . Lingual and labial strength and ROM appeared WFL. Informal Assessment Receptive Language Normal Yes Expressive Language Normal No Expressive Language Impairment(s) Divergent naming Pragmatic Language Normal Yes Speech Normal Yes Cognition Normal Yes Formal Assessment Standardized Test/Screener Type Quick Aphasia Battery (QAB) Administration Complete Results ST administered the Quick Aphasia Battery (QAB) form 1a with Pt scoring the following: Word comprehension 10.00 Sentence comprehension 6.67 Word finding 8.75 Grammatical construction 9.75 Speech motor programming 10.00 Repetition 9.17 Reading 10.00 QAB overall 8.96 A total score of 8.96 indicates a severity rating of no aphasia, however per Pt report and clinical observation Pt exhibits anomia during conversation, which causes increased frustration with Pt. On the QAB Pt exhibited weaknesses in naming and sentence comprehension and strengths in writing and word comprehension. Findings/Results Language Function Mildly impaired Cognitive Function Within functional limits Findings Pt presents with mild expressive aphasia, characterized by occasional anomia with associated frustration, embarrassment and resistance to communicating with others. Cognition and speech appear WFL. Pt denies any swallowing difficulties. Cognitive Communication Deficits Self-awareness of Cognitive- Predictive awareness (able to Communication Deficits predict problem; impact of impairments) Prognosis Prognosis Good Based on Cognitive status,Family support,Time since onset Plan of Care Speech-Language Treatment Yes Frequency 1x/week Duration 3 months Patient/Caregiver Education Described results of evaluation,Patient expressed understanding of evaluation, Patient expressed agreement with goals and treatment plans ,Family/caregivers expressed understanding of evaluation, Family/caregivers expressed agreement with goals and treatment plan,Patient requires further education/ training,Family/caregivers require further education/ training Short Term Goals STG 1: Patient will complete simple sentences with use of compensatory strategies, such as circumlocation with 80% accuracy and mod cues. STG 2: Patient will name/ describe objects/pictures with 80% accuracy and mod cues for forced choice, phonemic/ semantic cueing, gestural/ contextual cues. STG 3: Patient will complete naming during Semantic Feature Analysis with 80% accuracy with mild cues. Penitentiary Goals LTG 1: Patient will develop functional, cognitive- linguistic-based skills and utilize compensatory strategies to communicate wants and needs effectively to different conversational partners, maintain safety and participate socially in functional living environment
--- NOTE | 2025-02-10 10:35 | ST.OPPOC ---
Physical, Occupational & Speech Therapy At [facility] Visit Care Team Role Provider Type Booker Hancock MD Attending Provider Physician Family Provider Primary Care Provider Referring Provider Address: [address] [place] [address], [facility] [place], [address] Speech Pathology Plan of Care Plan of Care Dates 02/06/25-05/08/[address] Hancock Patient History Pt seen this date for speech/language evaluation d/t CVA, 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 Pt is accompanied by his . He was sent to [facility] on 01/20 from the ER at [facility] d/t a CT scan showing that his carotid artery was narrowed. He had surgery on his carotid artery while at the hospital and was discharged on 01/26. He reports residual symptoms include word finding difficulties that he says happen all the time. He reports slight resistance communicating with others d/t word finding and has some embarrassment around it. He reports his goal for therapy is to improve word finding and overall communication. Self-awareness of Cognitive- Predictive awareness (abl Communication Deficits Short Term Goals STG 1: Patient will complete simple sentences with use of compensatory strategies, such as circumlocation with 80% accuracy and mod cues. STG 2: Patient will name/describe objects/ pictures with 80% accuracy and mod cues for forced choice, phonemic/semantic cueing, gestural/contextual cues. STG 3: Patient will complete naming during Semantic Feature Analysis with 80% accuracy with mild cues. Alf Goals LTG 1: Patient will develop functional, sumatcpgb-vfcaaciojx-hhvmr skills and utilize compensatory strategies to communicate wants and needs effectively to different conversational partners, maintain safety and participate socially in functional living environment Comment: Electronically Signed by: JASON Rodriguez 02/10/25 0992 If you are in agreement with this Plan of Care, please return a signed and dated copy. I have reviewed this Plan of Care and certify that the skilled therapy services above are required to meet the patient?s needs. Physician Signature Date Printed Name and Credentials Clinical Instructor Signature Printed Name and Credentials
--- NOTE | 2025-02-13 16:04 | ST.OPTN ---
Visit Care Team Role Provider Type Booker Hancock MD Attending Provider Physician Family Provider Primary Care Provider Referring Provider Address: [address] [place] [address], [address], [place], [address] BRAILLE TYPIST Treatment Note BRAILLE TYPIST Treatment Note Start: 02/13/25 15:56 Freq: Status: Active Protocol: Document 02/13/25 15:56 MA (Rec: 02/13/25 16:03 MA Desktop) Speech Pathology Treatment Note Session Time Visit Start Time 15:15 Visit Stop Time 15:45 Total Visit Minutes 30 Visit Information Visit Number 2 Plan of Care Dates 02/06/25-05/08/25 Setting Treatment Setting Outpatient Care Next Note Type Next Note Type Treatment Note General Information Patient History Pt seen this date for speech/ language evaluation d/t CVA, 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 Pt is accompanied by his . He was sent to [facility] on 01/20 from the ER at [facility] d/t a CT scan showing that his carotid artery was narrowed. He had surgery on his carotid artery while at the hospital and was discharged on 01/26. He reports residual symptoms include word finding difficulties that he says happen all the time . He reports slight resistance communicating with others d/t word finding and has some embarrassment around it. He reports his goal for therapy is to improve word finding and overall communication. Subjective Identification Type Name Others Present Family Observations/Patient Presentation Pt arrived on time with his who accompanied him to therapy. Chief Complaint(s) Language Objective Short Term Goals STG 1: Patient will complete simple sentences with use of compensatory strategies, such as circumlocation with 80% accuracy and mod cues. STG 2: Patient will name/ describe objects/pictures with 80% accuracy and mod cues for forced choice, phonemic/ semantic cueing, gestural/ contextual cues. STG 3: Patient will complete naming during Semantic Feature Analysis with 80% accuracy with mild cues. Tree Topper Goals LTG 1: Patient will develop functional, cognitive- linguistic-based skills and utilize compensatory strategies to communicate wants and needs effectively to different conversational partners, maintain safety and participate socially in functional living environment Treatment Activities Education related to word finding strategies, such as circumlocation, d/t Pt reporting occasional moments of anomia, however also reports improvements. Implementation of Semantic Feature Analysis (SFA) to target anomia and education with on how to cue Pt and utilize SFA during conversation when he is having word finding difficulties Assessment Patient Response to Treatment Excellent Rehab Potential Excellent Impairments Identified Expressive language Progress Towards Goals Excellent Progress Assessment of Improvement ST provided educational handouts related to word finding strategies and how to implement them in conversation with related examples provided. Pt exhibited x2 examples of word finding difficulties during structured conversation and looked to his the first time to assist with the word. ST encouraged Pt to try and utilize strategies independently to recall the word and also educating his on cues to provide him to help with word finding. Both verbalized understanding. Pt independently attempted to utilize SFA chart during conversation when trying to state stroke, however was able to name the word before requiring use of chart. ST assessed word finding utilizing picture naming task with use of SFA chart. Pt named pictures with 100% accuracy not requiring SFA chart, however ST provided Pt with a copy of the chart to practice utilizing at home. ST also recommended Pt write down any words he notices difficulty naming and practice naming them with use of SFA chart at home. Pt verbalized understanding. Reviewed with Patient Goals,Progress Being Made,Home Exercise Program
--- NOTE | 2025-02-19 17:07 | ST.OPTN ---
Visit Care Team Role Provider Type Booker Hancock MD Attending Provider Physician Family Provider Primary Care Provider Referring Provider Address: [address] [place] [address], [address], [place], [address] SIGNAL INTELLIGENCE ANALYST Treatment Note SIGNAL INTELLIGENCE ANALYST Treatment Note Start: 02/13/25 15:56 Freq: Status: Active Protocol: Document 02/19/25 16:54 SS (Rec: 02/19/25 17:07 SS Desktop) Speech Pathology Treatment Note Session Time Visit Start Time 16:15 Visit Stop Time 16:52 Total Visit Minutes 37 Visit Information Visit Number 3 Plan of Care Dates 02/06/25-05/08/25 Insurance Information Medicare Setting Treatment Setting Outpatient Care Visit Type Note Type Treatment Note Next Note Type Next Note Type Treatment Note General Information Patient History Pt seen this date for speech/ language evaluation d/t CVA, 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 Pt is accompanied by his . 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 He had surgery on his carotid artery while at the hospital and was discharged on 01/26. He reports residual symptoms include word finding difficulties that he says happen all the time . He reports slight resistance communicating with others d/t word finding and has some embarrassment around it. He reports his goal for therapy is to improve word finding and overall communication. Subjective Identification Type Name Others Present Family Observations/Patient Presentation Pt arrived on time with his who accompanied him to the session. He was engaged and motivated throughout. Chief Complaint(s) Language Objective Short Term Goals STG 1: Patient will complete simple sentences with use of compensatory strategies, such as circumlocation with 80% accuracy and mod cues. STG 2: Patient will name/ describe objects/pictures with 80% accuracy and mod cues for forced choice, phonemic/ semantic cueing, gestural/ contextual cues. STG 3: Patient will complete naming during Semantic Feature Analysis with 80% accuracy with mild cues. Snf Goals LTG 1: Patient will develop functional, cognitive- linguistic-based skills and utilize compensatory strategies to communicate wants and needs effectively to different conversational partners, maintain safety and participate socially in functional living environment Treatment Activities Implemented word-finding strategies and continued with strategy instruction. Discussed cognitive load management during conversations. Continued with contextualized conversation proactive with implementation of selected strategies. Reviewed recommendations for home practice. Assessment Patient Response to Treatment Excellent Rehab Potential Excellent Impairments Identified Expressive language Progress Towards Goals Excellent Progress Assessment of Overall Progress Improving Assessment of Improvement SIGNAL INTELLIGENCE ANALYST facilitated discussion re: pt and spouse concerns/ observations since the last treatment sessions. Pt and spouse noted minimal word- finding difficulty, although pt continues to occasionally become frustrated when instances of anomia occur. Discussed importance of managing cognitive load during those situations by reducing internal distractions (fatigue , physical discomfort, emotional state), environmental distractions ( auditory, visual, etc), linguistic demand (complexity, amount, organization, familiarity), and interactional demand (speed, number of partners, format). Pt expressed understanding of these recommendations and stated he believes this will increase his word retrieval. In conversation, very infrequent instances of anomia were noted with Nash able to retrieve the word independently in most opportunities. Reviewed compensatory strategies, including circumlocution, pausing, synonyms/antonyms, paraphrasing, alphabet prompt, sentence prompt, reference list and gestures. Pt was able to implement circumlocution x2 today given min verbal prompting. Encouraged pt continue with home practice and monitoring of the effectiveness of strategies. Plan to complete 1-2 additional treatment sessions given pt progress and minimal difficulty with participation in a range of communication settings. Reviewed with Patient Goals,Progress Being Made,Home Exercise Program Patient/Caregiver Understanding Excellent Plan Amount of Therapy Recommended 1-2 Months Frequency of Treatment Once a Week Length of Session 30 Minutes Therapeutic Contents Client Education,Cognitive- Linguistic Training,Home Exercise Program Provided Patient/Caregiver Instruction Plan of Care,Questions/ Concerns Therapy Recommendations Continue with Current Program
--- NOTE | 2025-02-24 14:21 | ST.OPTN ---
Visit Care Team Role Provider Type Booker Hancock MD Attending Provider Physician Family Provider Primary Care Provider Referring Provider Address: [address] [place] [address], [address], [place], [address] MACHINE INKER Treatment Note MACHINE INKER Treatment Note Start: 02/13/25 15:56 Freq: Status: Active Protocol: Document 02/24/25 14:10 SS (Rec: 02/24/25 14:21 SS Desktop) Speech Pathology Treatment Note Session Time Visit Start Time 13:45 Visit Stop Time 14:10 Total Visit Minutes 25 Visit Information Visit Number 4 Plan of Care Dates 02/06/25-05/08/25 Insurance Information Medicare Setting Treatment Setting Outpatient Care Visit Type Note Type Treatment Note Next Note Type Next Note Type Discharge Summary General Information Patient History Pt seen this date for speech/ language evaluation d/t CVA, 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 Pt is accompanied by his . 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 He had surgery on his carotid artery while at the hospital and was discharged on 01/26. He reports residual symptoms include word finding difficulties that he says happen all the time . He reports slight resistance communicating with others d/t word finding and has some embarrassment around it. He reports his goal for therapy is to improve word finding and overall communication. Subjective Identification Type Name Others Present Family Observations/Patient Presentation Pt arrived on time to the session. He was engaged and motivated throughout. Chief Complaint(s) Language Objective Short Term Goals STG 1: Patient will complete simple sentences with use of compensatory strategies, such as circumlocution with 80% accuracy and mod cues. (Goal met) STG 2: Patient will name/ describe objects/pictures with 80% accuracy and mod cues for forced choice, phonemic/ semantic cueing, gestural/ contextual cues. (Goal met) STG 3: Patient will complete naming during Semantic Feature Analysis with 80% accuracy with mild cues. (Goal met) Skilled Nursing Goals LTG 1: Patient will develop functional, cognitive- linguistic-based skills and utilize compensatory strategies to communicate wants and needs effectively to different conversational partners, maintain safety and participate socially in functional living environment. (Goal met) Treatment Activities Reviewed word-finding strategies and principles of Semantic Feature Analysis. Reviewed pt reported instances of anomia during conversations since the last treatment session. Discharge summary completed today given excellent progress over the course of treatment and pt denying further concerns. Assessment Patient Response to Treatment Excellent Rehab Potential Excellent Impairments Identified Expressive language Progress Towards Goals Excellent Progress,Goals Met, Appropriate for Discharge Assessment of Overall Progress Improving,Rehabilitated Assessment of Improvement MACHINE INKER facilitated discussion about concerns/observations since the last treatment sessions. Pt expressed he has been writing down all instances of anomia that he had noticed since the last treatment session. He noted minimal word-finding difficulty and expressed that he was able to utilize circumlocution successfully in each of those instances. He denied any negative feelings or reduced communication in daily life as a result. Reviewed compensatory strategies and principles of SFA, which pt endorsed he has been implementing regularly. In conversation, he did not demonstrate overt word-finding difficulty and expressed that he feels he is back to baseline currently. Encouraged pt to continue implementing trained strategies as needed to mitigate word retrieval difficulties when they occur. Pt was agreeable and expressed he found trained strategies/ tools to be very helpful and he feels more confident during conversations now. Since the start of care, pt has improved in self- perception of word-finding abilities and endorses improvement in functional word retrieval during conversations. He has been diligent in implementing trained strategies and recommendations. He plans to continue implementing them as needed to maintain the gains he had made with speech therapy services. The plan is to discharge the pt from speech therapy services as he has met his LTG and STG goals targeting cognitive- communication. Recommend he request a referral from his PCP if he notes changes. Pt agreeable to plan. Reviewed with Patient Goals,Progress Being Made,Home Exercise Program Patient/Caregiver Understanding Excellent Plan Amount of Therapy Recommended No Further Therapy Frequency of Treatment No Further Therapy Therapeutic Contents Client Education,Cognitive- Linguistic Training,Home Exercise Program Provided Patient/Caregiver Instruction Plan of Care,Questions/ Concerns Therapy Recommendations Discharge to Home Exercise Program,Discharge from Speech Therapy
== END 2025-02-26 15:03 | disposition home or self-care (01) ==
LOC: SP 13:45
PROVIDERS: Family Provider Family Medicine; PCP Family Medicine; Referring Provider Family Medicine; Visit Provider Family Medicine
DX: I63.40 Cerebral infarction due to embolism of unspecified cerebral artery (principal); R47.01 Aphasia
CPT/HCPCS: 92507; 92523

== ENCOUNTER 2025-03-17 11:31 | Emergency (ER) | payer MEDICARE, OTHER, SELFPAY ==
[2025-03-17] VITALS (10 sets, daily range): BP systolic 139–155; BP diastolic 64–78; PULSE 60–83; RESP 16; TEMP 36.9; O2SAT 94–99; BMI 24.3
--- NOTE | 2025-03-17 16:00 | ED_ITS ---
HPI - Abdominal Pain General Chief Complaint: Abdominal Pain Stated Complaint: constipated- carotid sx recently Time Seen by Provider: 03/17/25 15:12 Source: patient Mode of arrival: Ambulatory History of Present Illness HPI narrative: Patient is a 85-year-old male with history of nephrolithiasis, BPH, hyperlipidemia, hypertension, presenting with abdominal pain and constipation. Patient states that he has not had a bowel movement in over 2 days which is unusual for him. States that he has attempted to take Colace and other medications at home without any effect. Patient denies any nausea or vomiting although does endorse difficulty with urination over the course of the day of presentation. He has had no dysuria although states the last time he was able to pee successfully was on the morning of presentation. Patient denies fevers, chills, sharp abdominal pains, has been eating and drinking normally. Patient was recently admitted at [facility] for carotid endarterectomy. Related Data Home Medications Medication Instructions Recorded Confirmed Fish Oil 1,200 mg PO QPM 10/01/18 10/24/18 aspirin 81 mg tablet,delayed 81 mg PO QPM 10/01/18 12/04/18 release calcium 600 mg-D3 20 mcg-magnesium 1 tab PO QPM 10/01/18 12/04/18 50 yx-Js-bwnmxb-aracelis-boron tablet (Calcium 600-D3 Plus (mag-zinc)) calcium polycarbophil 625 mg 625 mg PO QPM 10/01/18 12/04/18 tablet (Fiber (calcium polycarbophil)) folic acid 400 mcg tablet 0.4 mg PO QPM 10/01/18 10/24/18 lansoprazole 30 mg capsule,delayed 30 mg PO DAILY 10/01/18 12/04/18 release lovastatin 40 mg tablet 40 mg PO QPM 10/01/18 12/04/18 tamsulosin 0.4 mg capsule 0.8 mg PO QPM 10/01/18 10/24/18 Previous Rx's Medication Instructions Recorded sulfamethoxazole 800 1 tab PO BID #14 tabs 10/01/18 mg-trimethoprim 160 mg tablet (Bactrim DS) Allergies Allergy/AdvReac Type Severity Reaction Status Date / Time No Known Drug Allergies Allergy Verified 10/24/18 13:17 Review of Systems Review of Systems ROS Unobtainable: All systems reviewed & are unremarkable except as noted in HPI and below Constitutional Constitutional: Denies chills and Denies fever(s) Eyes Eyes: Denies diplopia and Denies loss of vision Cardiovascular Cardiovascular: Denies lightheadedness and Denies dyspnea Respiratory Respiratory: Denies dyspnea Gastrointestinal Gastrointestinal: Reports abdominal pain and Reports constipation Genitourinary Genitourinary: Reports oliguria, Reports difficulty urinating and Denies dysuria Musculoskeletal Musculoskeletal: Denies arthralgias Neurologic Neurologic: Denies confusion and Denies loss of vision Psychiatric Psychiatric: Denies confusion Patient History Medical History Kidney stones BPH (benign prostatic hyperplasia) Hyperlipidemia HTN (hypertension) GERD (gastroesophageal reflux disease) Surgical History History of tonsillectomy Social History household members: spouse alcohol intake frequency: 0-2 drinks per day Exam Initial Vital Signs Initial Vital Signs: Vital Signs Temperature 98.5 F 03/17/25 12:14 Pulse Rate 83 03/17/25 12:14 Respiratory Rate 16 03/17/25 12:14 Blood Pressure 139/64 03/17/25 12:14 Pulse Oximetry 98 03/17/25 12:14 Oxygen Delivery Method Room Air 03/17/25 12:14 Const General: cooperative, No acute distress and No ill appearing Nutritional Appearance: average body habitus and well nourished [facility] Head: normocephalic and atraumatic Eyes General: Yes appearance normal, both eyes and all related structures Resp Effort & Inspection: normal respiratory effort Cardio Rate: regular rate Rhythm: regular rhythm GI Inspection: distended Palpation: soft Auscultation: normal bowel sounds Skin General: no rashes or lesions noted Neuro General: patient alert and not confused Extrem General: normal to inspection and full ROM Psych Appearance: grossly normal Mental Status: mental status grossly normal Course Orders Ordered: ED Orders 03/17/25 16:01 CT abdomen pelvis w con Stat 03/17/25 16:10 CBC Auto Diff [Complete Blood Count AUTO DIFF] Stat CMP [Comprehensive Metabolic Panel] Stat MAG [Magnesium] Stat 03/17/25 17:00 Urinalysis and Microscopic Stat Vital Signs Vital signs: Vital Signs - 8 hr 03/17/25 12:14 03/17/25 14:54 03/17/25 14:54 Temperature 98.5 F Pulse Rate 83 80 Respiratory Rate 16 16 Blood Pressure 139/64 147/66 H Pulse Oximetry 98 98 Oxygen Delivery Method Room Air 03/17/25 15:00 03/17/25 15:30 03/17/25 16:00 Temperature Pulse Rate 73 60 70 Respiratory Rate Blood Pressure 155/67 H Pulse Oximetry 99 99 98 Oxygen Delivery Method 03/17/25 16:30 03/17/25 17:05 03/17/25 17:30 Temperature Pulse Rate 68 68 65 Respiratory Rate Blood Pressure Pulse Oximetry 99 94 95 Oxygen Delivery Method 03/17/25 18:00 Temperature Pulse Rate 62 Respiratory Rate Blood Pressure Pulse Oximetry 95 Oxygen Delivery Method MDM - Abdominal Pain Differential Diagnosis Differential diagnosis: Likely calculus of kidney, constipation, small bowel obstruction and other (UTI, urinary obstruction, kidney injury) Medical Records Attestation: I reviewed the patient's medical records. Lab Data Attestation: I reviewed the patient's lab results. Lab results narrative: Without leukocytosis or severe anemia. Creatinine is patient's baseline when compared to recent priors. 03/17/25 16:10 03/17/25 16:10 Labs: Lab Results 03/17/25 03/17/25 Range/Units 16:10 17:00 WBC 8.0 (4.5-11.0) X10^3/uL RBC 4.09 L (4.5-5.9) X10^6/uL Hgb 12.8 L (13.5-17.5) g/dL Hct 37.5 L (41-53) % MCV 91.7 (80-100) fL MCH 31.2 (26-34) PG MCHC 34.1 (30-36) % RDW 14.2 (11.6-14.8) % Plt Count 177 (150-400) X10^3/uL Neut % (Auto) 87.9 H (50-75) % Lymph % (Auto) 4.9 L (25-40) % Louisa % (Auto) 6.7 (3-14) % Eos % (Auto) 0.2 L (2-4) % Baso % (Auto) 0.3 (0-2) % Neut # (Auto) 7000 (3334-5118) /uL Lymph # (Auto) 400 L (6889-2808) /uL Louisa # (Auto) 500 (0-900) /uL Eos # (Auto) 0 (0-450) /uL Baso # (Auto) 0 (0-100) /uL Sodium 139 (137-145) mmol/L Potassium 4.6 (3.4-5.1) mmol/L Chloride 108 H (98-107) mmol/L Carbon Dioxide 25 (22-32) mmol/L BUN 15 (9-20) mg/dL Creatinine 1.34 H (0.66-1.25) mg/dL Estimated GFR 53 L (>60) mL/min BUN/Creatinine Ratio 11.2 (6-22) Glucose 100 H (70-99) mg/dL Calcium 9.2 (8.4-10.2) mg/dL Magnesium 1.9 (1.6-2.3) mg/dL Total Bilirubin 0.9 (0.2-1.3) mg/dL AST 28 (17-59) IU/L ALT 22 (<50) IU/L Alkaline Phosphatase 86 (38-126) U/L Total Protein 6.5 (6.3-8.2) g/dL Albumin 4.1 (3.5-5.0) g/dL Globulin 2.4 (1.7-4.1) g/dL Albumin/Globulin Ratio 1.7 (1.0-2.8) Urine Color Yellow Urine Appearance Clear Urine pH 5.5 (4.5-8.0) Ur Specific [place] 1.010 (1.000-1.035) Urine Protein Negative (Negative) Urine Glucose (UA) Negative (Negative) g/dL Urine Ketones Trace H (NEGATIVE) Urine Occult Blood Negative (Negative) Urine Nitrate Negative (Negative) Urine Bilirubin Negative (NEGATIVE) Urine Urobilinogen 0.2 (0.2) E.U./dL Ur Leukocyte Esterase Negative (NEGATIVE) Urine RBC 0-1/hpf (0-5/HPF) Urine WBC 0-1/hpf (0-5/HPF) Ur Squamous Epith Cells 0-1 /hpf (0-5/HPF) Urine Bacteria Occasional (0-1) (None) Urine Mucus 1+ H (Negative) Ur Culture Indicated? Cult not indicated Vol Urine Centrifuged 10ml (spun) Imaging Data CT scan - abdomen/pelvis: Attestation: I personally reviewed and interpreted this imaging study as follows: My Impression: Without evidence of obstruction, hydronephrosis, gallbladder dilation, other acute abnormalities on independent review. Radiologist's Impression: [address] [address] [address] Scan Report Signed Patient: Nash Puentes MR#: [id number] : 1940 Acct:[id number] Age/Sex: 85 / M Date of Service: 03/17/25 Loc: ED Accession Number: [id number] Procedure: CT abdomen pelvis w con Ordering Provider: Jazz Gonzales MD PROCEDURE: CT ABDOMEN PELVIS W CON INDICATIONS: Abdominal pain TECHNIQUE: After the administration of intravenous contrast, axial sections acquired from the lung bases to the pubic symphysis. Coronal and sagittal reformats were performed. For radiation dose reduction, the following was used: automated exposure control, adjustment of mA and/or kV according to patient size. COMPARISON: [facility], CT, CT ABDOMEN PELVIS W CON, 10/01/2018, 15:36. FINDINGS: Image quality: Diagnostic. Lower Chest: No significant findings. ABDOMEN: Liver: No solid mass. Gallbladder: Multiple calculi in the gallbladder. Biliary ducts: No biliary dilation. Pancreas: No ductal dilation. Spleen: Size is within normal limits. Adrenal Glands: No adrenal nodules. Kidneys and Ureters: No hydronephrosis. No solid mass. No complex renal cystic lesion which requires follow up. Stomach and Bowel: Normal colonic caliber, without significant wall thickening. The appendix is normal. Peritoneum: No abnormal intraperitoneal fluid. No free air. Ventral Wall: No significant ventral hernia. Abdominal Nodes: No retroperitoneal or mesenteric adenopathy by size criteria. 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 PELVIS: Pelvic Organs: Prostate is enlarged measuring 8.3 x 7 x 6.6 cm Bladder: Mild to moderate diffuse wall thickening, likely due to bladder outlet obstruction. Pelvic Nodes: No enlarged lymph nodes. Miscellaneous: No inguinal hernias are seen. Bones: No aggressive osseous abnormality. IMPRESSION: 1. No acute intra-abdominal abnormality seen. 2. Multiple chronic findings as above. 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 Dictated by: Heraclio Morales M.D. on 03/17/2025 at 17:17 Approved by: Heraclio Morales M.D. on 03/17/2025 at 17:24 MDM Narrative Medical decision making narrative: History and exam as above. Patient presenting with abdominal discomfort and constipation. Differential for presentation includes SBO, slow transit constipation, urinary tract infection or urinary tract obstruction, UTI. Plan for evaluation with labs including CBC, CMP, urinalysis, we will also obtain CT imaging for further evaluation. CT imaging without evidence of obstruction or other acute intra-abdominal pathology. Upon re-evaluation, patient endorsing having had a large bowel movement here in the emergency department and resolution of his stomach discomfort. Suspect his symptoms were likely in the setting of his constipation. Patient counseled regarding high-fiber diet, hydration, and management of constipation with medications. Discharged in stable condition. Discharge Plan Departure Prescriptions: No Action lovastatin 40 mg Tablet 40 mg PO QPM folic acid 400 mcg Tablet 0.4 mg PO QPM aspirin 81 mg Tablet,Delayed Release (Dr/Ec) 81 mg PO QPM tamsulosin 0.4 mg Capsule 0.8 mg PO QPM lansoprazole 30 mg Capsule,Delayed Release(Dr/Ec) 30 mg PO DAILY calcium polycarbophil [Fiber (calcium polycarbophil)] 625 mg Tablet 625 mg PO QPM Ca-D3-mag ei-fjvr-bhd-antolin-bor [Calcium 600-D3 Plus (mag-zinc)] 600 mg calcium- 800 unit-50 mg Tablet 1 tab PO QPM Fish Oil 1,200 mg 1,200 mg PO QPM sulfamethoxazole-trimethoprim [Bactrim DS] 800-160 mg tablet 1 tab PO BID Qty: 14 0RF Referrals: Booker Hancock MD [Primary Care Provider] -
[2025-03-17 16:18] LABS: Add Manual Diff / Slide Review NO; Basophils Absolute Auto 0 /uL (0-100); Basophils Percent Auto 0.3 % (0-2); Eosinophils Absolute Auto 0 /uL (0-450); Eosinophils Percent Auto 0.2 % (2-4); Hematocrit 37.5 % (41-53); Hemoglobin 12.8 g/dL (13.5-17.5); Lymphocytes Absolute Auto 400 /uL (1100-4500); Lymphocytes Percent Auto 4.9 % (25-40); Mean Corpuscular HGB Conc 34.1 % (30-36); Mean Corpuscular Hemoglobin 31.2 PG (26-34); Mean Corpuscular Volume 91.7 fL (80-100); Monocytes Absolute Auto 500 /uL (0-900); Monocytes Percent Auto 6.7 % (3-14); Neutrophils Absolute Auto 7000 /uL (1500-7000); Neutrophils Percent Auto 87.9 % (50-75); Platelet Count 177 X10^3/uL (150-400); Red Blood Cell Count 4.09 X10^6/uL (4.5-5.9); Red Cell Distribution Width 14.2 % (11.6-14.8)
[2025-03-17 16:31] LABS: Alanine Aminotransferase 22 IU/L (<50); Albumin 4.1 g/dL (3.5-5.0); Albumin Globulin Ratio 1.7 (1.0-2.8); Alkaline Phosphatase 86 U/L (38-126); Aspartate Aminotransferase 28 IU/L (17-59); BUN Creatinine Ratio 11.2 (6-22); Bilirubin Total 0.9 mg/dL (0.2-1.3); Blood Urea Nitrogen 15 mg/dL (9-20); Calcium 9.2 mg/dL (8.4-10.2); Carbon Dioxide 25 mmol/L (22-32); Chloride 108 mmol/L (98-107); Estimated Glomerular Filt Rate 53 mL/min (>60); Globulin 2.4 g/dL (1.7-4.1); Glucose 100 mg/dL (70-99); HEMOLYSIS < 15 (0-50); Magnesium 1.9 mg/dL (1.6-2.3); Potassium 4.6 mmol/L (3.4-5.1); Sodium 139 mmol/L (137-145); Total Protein 6.5 g/dL (6.3-8.2)
--- NOTE | 2025-03-17 17:00 | INF.NOTE ---
Pt up to BR independently. Large BM out. Pt ambulatory to CT.
[2025-03-17 18:09] LABS: Appearance Urine UA CLEAR; Bilirubin Urine UA NEGATIVE (NEGATIVE); Color Urine UA YELLOW; Glucose Urine UA NEGATIVE (Negative); Ketones Urine UA TRACE (NEGATIVE); Leukocyte Esterase Urine UA NEGATIVE (NEGATIVE); Nitrite Urine UA NEGATIVE (Negative); Occult Blood Urine UA NEGATIVE (Negative); Protein Urine UA NEGATIVE (Negative); Urobilinogen Urine UA 0.2 E.U./dL (0.2); pH Urine UA 5.5 (4.5-8.0)
[2025-03-17 18:17] LABS: Bacteria Urine Occasional (0-1); Culture Indicated Urine Cult Not Indicated; Mucus Urine 1+ (Negative); RBC Urine 0-1/HPF (0-5/HPF); Squamous Epithelial Cell Urine 0-1 /HPF (0-5/HPF); Urine Volume 10mL (spun); WBC Urine 0-1/HPF (0-5/HPF)
== END 2025-03-17 18:43 | disposition home or self-care (01) ==
PROVIDERS: Emergency Provider Student in an Organized Health Care Education/Training Program; Family Provider Family Medicine; PCP Family Medicine
DX: R10.9 Unspecified abdominal pain (principal); K59.00 Constipation, unspecified
CPT/HCPCS: 36415; 74177; 80053; 81001; 83735; 85025; 99283; 99284; Q9967